=== PATIENT | female | born 1965 | race Caucasian/White ===

== ENCOUNTER → 2018-12-28 | Outpatient (CLI) | payer BC ==
--- NOTE | 2018-12-29 08:12 | CT ---
EXAMINATION TYPE: CT pelvis w con DATE OF EXAM: 12/28/2018 COMPARISON: CT abdomen pelvis 02/13/2016 HISTORY: Right lower quadrant/groin pain. CT DLP: 1025 mGycm Automated exposure control for dose reduction was used. CONTRAST: Performed with IV Contrast, patient injected with 100ml mL of Isovue 300. FINDINGS: Inferior portion of the abdomen within the [id number] is unremarkable. Loops of bowel distended with oral contrast are nondilated. Oral contrast extends to the colon. Urina ry bladder is unremarkable. Uterus and ovaries are not identified. Prior sigmoid bowel surgery appear s to be present. Descending colon is decompressed. There is an anterior abdominal wall hernia containing mesenteric fat. There is some small amount of l arge bowel extending into this region. No evidence of obstruction. Opening appears wide measuring 3.4 cm. No inguinal hernias are evident. No enlarged adenopathy is evident. Phleboliths are present. IMPRESSION: 1. ANTERIOR ABDOMINAL WALL HERNIA WHICH HAS A VERY SMALL EDGE OF COLON INVOLVED. NO EVIDENCE OF OBSTR UCTION IS WIDE OPENING. 2. POSTSURGICAL CHANGES WITHIN THE PELVIS. 3. NO SUSPICIOUS ETIOLOGY TO ACCOUNT FOR RIGHT LOWER QUADRANT GROIN PAIN.
== END | disposition home or self-care (01) ==
LOC: RADCTMAIN 15:55
PROVIDERS: ATTEND Family Medicine
DX: K43.9 Ventral hernia without obstruction or gangrene (principal)
CPT/HCPCS: 72193; Q9967

== ENCOUNTER → 2018-12-29 | Outpatient (CLI) | payer BC ==
[2018-12-29 09:48] LABS: Basophils % (A) 1 %; Eosinophils # (A) 0.1 k/uL (0-0.7); Eosinophils % (A) 3 %; HCT 39.7 % (34.0-46.0); Lymphocytes # (A) 1.6 k/uL (1.0-4.8); Lymphocytes % (A) 44 %; MCH 28.5 pg (25.0-35.0); MCHC 32.7 g/dL (31.0-37.0); MCV 87.1 fL (80.0-100.0); Mean Platelet Volume 8.3; Monocytes # (A) 0.2 k/uL (0-1.0); Monocytes % (A) 4 %; Neutrophils # (A) 1.6 k/uL (1.3-7.7); Neutrophils % (A) 46 %; Platelet Count 214 k/uL (150-450); RBC 4.56 m/uL (3.80-5.40); WBC 3.5 k/uL (3.8-10.6)
[2018-12-29 10:13] LABS: ALT 34 U/L (9-52); AST 25 U/L (14-36); Albumin 4.4 g/dL (3.5-5.0); Alkaline Phosphatase 90 U/L (38-126); Anion Gap 5 mmol/L; Blood Urea Nitrogen 9 mg/dL (7-17); Calcium 9.7 mg/dL (8.4-10.2); Carbon Dioxide 30 mmol/L (22-30); Chloride 105 mmol/L (98-107); Glucose 96 mg/dL (74-99); Potassium 4.8 mmol/L (3.5-5.1); Sodium 140 mmol/L (137-145); Total Bilirubin 0.6 mg/dL (0.2-1.3); Total Protein 7.5 g/dL (6.3-8.2)
--- NOTE | 2018-12-29 12:15 | MR ---
EXAMINATION TYPE: MR lumbar spine wo con DATE OF EXAM: 12/29/2018 COMPARISON: CT abdomen pelvis dated 02/13/2016 HISTORY: Back pain TECHNIQUE: Multiplanar, multisequence images of the lumbar spine were acquired. FINDINGS: The lumbar spine vertebral bodies maintain normal vertebral body heights and alignment. Mul tilevel disc desiccation is seen. Conus medullaris is unremarkable in signal and morphology. There is similar hepatic biliary ductal dilatation to the prior CT dated 02/13/2016 in this patient that is sta tus post cholecystectomy. L1-L2: Mild disc desiccation is seen without spinal canal stenosis nor neural foraminal narrowing. No focal disc herniation or disc bulge. L2-L3: Broad-based disc bulge is seen with facet arthropathy and mild ligamentum flavum buckling cont ributing to mild bilateral neural foraminal narrowing without spinal canal stenosis. L3-L4: There is a left eccentric disc bulge and small left foraminal annular tear creating mild left and minimal right neural foraminal narrowing. Facet arthropathy and ligamentum flavum buckling are al so seen. No significant spinal canal stenosis. L4-L5: There is a broad-based disc bulge and facet arthropathy with ligamentum flavum buckling. This disc bulges right eccentric creating moderate right neural foraminal narrowing and mild left neural f oraminal narrowing. No spinal canal stenosis. L5-S1: There is a small central disc herniation superimposed upon a broad-based disc bulge with mild facet arthropathy resulting in moderate right and mild left neural foraminal narrowing. No significan t spinal canal stenosis. IMPRESSION: 1. Small central disc herniation at L5-S1 in combination with a broad-based disc bulge creating moder ate right and mild left neural foraminal narrowing. 2. Mild multilevel degenerative disc disease of the lumbar spine creating multilevel neural foraminal narrowing as described above. No spinal canal stenosis.
== END ==
LOC: RADMRIMAIN 07:50
PROVIDERS: ATTEND Family Medicine
DX: M99.73 Connective tissue and disc stenosis of intervertebral foramina of lumbar region (principal); M51.17 Intervertebral disc disorders with radiculopathy, lumbosacral region; R10.31 Right lower quadrant pain
CPT/HCPCS: 36415; 72148; 80053; 85025

== ENCOUNTER 2019-04-25 18:56 | Emergency (ER) | payer BC ==
[2019-04-25 19:26] VITALS: BP 141/83; PULSE 69; RESP 18; TEMP 98.6
[2019-04-25] MEDS ORDERED: ACETAMINOPHEN TAB 325 MG TAB PO STA (19:59)
[2019-04-25] MEDS ORDERED: AMOXIC-POT CLAV 875-125MG 1 EACH TAB PO STA (19:59)
--- NOTE | 2019-04-25 20:13 | ED ---
General Adult HPI - General Chief complaint: Dental/Oral Stated complaint: Dental pain Time Seen by Provider: 04/25/19 19:32 Source: patient, RN notes reviewed, old records reviewed Mode of arrival: ambulatory Limitations: no limitations - History of Present Illness Initial comments: 54-year-old female patient presents to ED with approximately 3 days of dental pain. Patient points that she has pain on approximately tooth 22. Patient states that she has had dental problems in the past. Feels as if she has a dental infection. Denies any other complaints at this time. Denies chest pain comes with abdominal pain nausea vomiting diarrhea. Fevers and chills. Patient states that she is not . Systemic: Pt denies fatigue, fever/chills, rash. Pt denies weakness, night sweats, weight loss. Neuro: Pt denies headache, visual disturbances, syncope or pre-syncope. HEENT: Pt denies ocular discharge or irritation, otalgia, rhinorrhea, pharyngit is or notable lymphadenopathy. Cardiopulmonary: Pt denies chest pain, SOB, heart palpitations, dyspnea on exertion. Abdominal/GI: Pt denies abdominal pain, n/v/d. : Pt denies dysuria, burning w/ urination, frequency/urgency. Denies new onset urinary or bowel incontinence. MSK: Pt denies myalgia, loss of strength or function in extremities. Neuro: Pt denies new onset weakness, paresthesias. - Related Data Home Medications Medication Instructions Recorded Confirmed Lubiprostone [Amitiza] 24 mcg PO BID 06/18/16 08/27/16 Zipsor(Diclofenac Potassium) 25 mg PO Q6HR PRN 06/18/16 08/27/16 cloNIDine HCL [Catapres] 0.05 mg PO DAILY 06/18/16 08/27/16 Acetaminophen Tab [Tylenol Tab] 500 mg PO Q4-6H PRN 08/20/16 08/27/16 Glycolax 17 gm PO DAILY 08/20/16 08/27/16 Previous Rx's Medication Instructions Recorded ALPRAZolam [Xanax] 0.25 mg PO BID PRN #14 tab 08/31/16 HYDROcodone/APAP 5-325MG [M[place]ervey 1 - 2 tab PO Q6HR PRN #30 tab 08/31/16 5-325] Metoclopramide [Reglan] 10 mg PO Q8H PRN #15 tab 08/31/16 Amoxicillin/Potassium Clav 1 each PO Q12HR #20 tab 04/25/19 [Augmentin 875-125 Tablet] Allergies Allergy/AdvReac Type Severity Reaction Status Date / Time methylprednisolone Allergy Unknown Swelling Verified 04/25/19 19:26 tree nut [Nut] Allergy Unknown Swelling, Verified 04/25/19 19:26 Dyspnea Review of Systems ROS Statement: Those systems with pertinent positive or pertinent negative responses have been documented in the HPI. ROS Other: All systems not noted in ROS Statement are negative. Past Medical History Past Medical History: GERD/Reflux, Musculoskeletal Disorder Additional Past Medical History / Comment(s): Diverticulitis, IBS, Abdominal pain , states Buldging Discs in her back, Hx of nicked liver during gall bladder surgery with peritonitis. cyst on kidney History of Any Multi-Drug Resistant Organisms: None Reported Past Surgical History: Section, Cholecystectomy, Hysterectomy Additional Past Surgical History / Comment(s): neck surgery, laparoscopies, colonsocopy, oophorectomy(not sure which one) Past Anesthesia/Blood Transfusion Reactions: No Reported Reaction Past Psychological History: Anxiety Smoking Status: Never smoker Past Alcohol Use History: None Reported Past Drug Use History: None Reported - Past Family History Mother Family Medical History: No Reported History Father Additional Family Medical History / Comment(s): pt. states her father has been for 20 years, had a necrotic gallbladder ended up turning into pancreatitis and he secondary to that General Exam - General Exam Comments Initial Comments: Constitutional: NAD, AOX3, Pt has pleasant affect. HEENT: NC/AT, trachea midline, neck supple, no lymphadenopathy. Posterior pharynx non erythematous, without exudates. External ears appear normal, without discharge. Mucous membranes moist. Eyes PERRLA, EOM intact. There is no scleral icterus. No pallor noted. Mild erythema noted tooth 22. No drainable abscess. Dentition otherwise adequate. Cardiopulmonary: RRR, no murmurs, rubs or gallops, no JVD noted. Lungs CTAB in anterior and posterior scott. No peripheral edema. Abdominal exam: Abdomen soft and non-distended. Abdomen non-tender to palpation in all 4 quadrants. Bowel sounds active in LLQ. No hepatosplenomegaly. No ecchymosis Neuro: CN II-XII grossly intact. No nuchal rigidity. No raccon eyes, no bey sign, no hemotympanum. No cervical spinal tenderness. MSK: No posterior calf tenderness bilaterally, homans sign negative bilaterally. Posterior tibialis and radial pulse +2 bilaterally. Sensation intact in upper and lower extremities. Full active ROM in upper and lower extremities, 5/5 stregnth. Limitations: no limitations Course Vital Signs 04/25/19 19:24 Temperature 98.6 F Pulse Rate 69 Respiratory 18 Rate Blood Pressure 141/83 O2 Sat by Pulse 97 Oximetry Medical Decision Making - Medical Decision Making 54-year-old female patient presents to ED with approximately 3 days of dental pain. Patient points that she has pain on approximately tooth 22. Patient states that she has had dental problems in the past. Feels as if she has a dental infection. Denies any other complaints at this time. Denies chest pain comes with abdominal pain nausea vomiting diarrhea. Fevers and chills. Patient states that she is not . Patient also stable, afebrile. Physical exam displayed: Mild erythema noted tooth 22. No drainable abscess. Dentition otherwise adequate. Patient administered Tylenol and Augmentin ED. Patient discharged with Augmentin. Patient will follow up with dentist as soon as p ossible. Case discussed with Dr. Dean. Disposition Clinical Impression: Pain, dental, Dental infection Disposition: HOME SELF-CARE Condition: Stable Instructions (If sedation given, give patient instructions): Toothache (ED) Additional Instructions: Patient to adhere to previously discussed treatment plan and will take medication(s) as directed. Patient to follow up with PCP in 1-2 days. Patient to return to ED if symptoms do not improve. Take medication as prescribed. Follow-up with dentist as soon as possible. Return to ER if condition worsens. Prescriptions: Amoxicillin/Potassium Clav [Augmentin 875-125 Tablet] 1 each PO Q12HR #20 tab Is patient prescribed a controlled substance at d/c from ED?: No Referrals: Jackelyn Becerra MD [Primary Care Provider] - 1-2 days
== END 2019-04-25 20:39 | disposition home or self-care (01) ==
LOC: EC 18:56
DX: K04.7 Periapical abscess without sinus (principal); Z79.899 Other long term (current) drug therapy; Z88.8 Allergy status to other drugs, medicaments and biological substances; Z91.018 Allergy to other foods
CPT/HCPCS: 99283

== ENCOUNTER 2019-06-04 18:28 | Emergency (ER) | payer BC ==
[2019-06-04 19:14] VITALS: BP 129/79; TEMP 98.3
[2019-06-04] MEDS ORDERED: IBUPROFEN 600 MG TAB PO STA (19:28)
[2019-06-04] MEDS ORDERED: BENZONATATE 100 MG CAP PO STA (19:28)
[2019-06-04] MEDS ORDERED: AZITHROMYCIN 500 MG TAB PO STA (19:28)
[2019-06-04] MEDS ORDERED: ACETAMINOPHEN TAB 500 MG TAB PO STA (19:28)
[2019-06-04] MEDS ORDERED: IPRATROPIUM-ALBUTEROL 3 ML NEB INHALATION STA (19:28)
--- NOTE | 2019-06-04 19:30 | ED ---
URI HPI - General Chief Complaint: Upper Respiratory Infection Stated Complaint: cough/congestion/SOB Time Seen by Provider: 06/04/19 19:24 Source: patient, RN notes reviewed, old records reviewed Mode of arrival: ambulatory Limitations: no limitations - History of Present Illness Initial Comments: This is a 54-year-old female the ER for evaluation. Patient presents today for evaluation cough congestion shortness of breath feels like recurrent episodes of bronchitis. Patient's nonsmoker. No chest pain or travel history no sick contacts no known fevers she denies any sick contacts or travel history. Patient states she does appear to get this illness about once a year, symptoms are progressing 2 days MD Complaint: cough, nasal congestion -: days(s) (3) Severity: mild Severity scale (1-10): 3 Consistency: constant Improves With: nothing Worsens With: nothing Associated Symptoms: nasal congestion, sore throat, cough Treatments Prior to Arrival: none - Related Data Home Medications Medication Instructions Recorded Confirmed Cyclobenzaprine [Flexeril] 10 mg PO DAILY 06/04/19 06/04/19 Escitalopram Oxalate [Lexapro] 10 mg PO DAILY 06/04/19 06/04/19 Ibuprofen [Motrin] 800 mg PO BID 06/04/19 06/04/19 Omeprazole 40 mg PO DAILY 06/04/19 06/04/19 hydrOXYzine HCL [Atarax] 25 mg PO TID PRN 06/04/19 06/04/19 rOPINIRole HCL [Requip] 0.5 mg PO HS 06/04/19 06/04/19 Previous Rx's Medication Instructions Recorded Albuterol Sulfate [Proair Hfa] 1 - 2 puff INHALATION Q4H PRN #1 06/04/19 inhaler Azithromycin [Zithromax Z-pack] 0 mg PO DIRECTED #6 tab 06/04/19 Benzonatate [Tessalon Perles] 100 mg PO TID PRN #30 cap 06/04/19 Allergies Allergy/AdvReac Type Severity Reaction Status Date / Time methylprednisolone Allergy Unknown Swelling Verified 06/04/19 19:36 tree nut [Nut] Allergy Unknown Swelling, Verified 06/04/19 19:36 Dyspnea Review of Systems ROS Statement: Those systems with pertinent positive or pertinent negative responses have been documented in the HPI. ROS Other: All systems not noted in ROS Statement are negative. Past Medical History Past Medical History: GERD/Reflux, Musculoskeletal Disorder, Pneumonia Additional Past Medical History / Comment(s): Diverticulitis, IBS, Abdominal pain , states Buldging Discs in her back, Hx of nicked liver during gall bladder surgery with peritonitis. cyst on kidney History of Any Multi-Drug Resistant Organisms: None Reported Past Surgical History: Section, Cholecystectomy, Hysterectomy Additional Past Surgical History / Comment(s): neck surgery, laparoscopies, colonsocopy, oophorectomy(not sure which one) Past Anesthesia/Blood Transfusion Reactions: No Reported Reaction Past Psychological History: Anxiety Smoking Status: Never smoker Past Alcohol Use History: None Reported Past Drug Use History: None Reported - Past Family History Mother Family Medical History: No Reported History Father Additional Family Medical History / Comment(s): pt. states her father has been for 20 years, had a necrotic gallbladder ended up turning into pancreatitis and he secondary to that General Exam Limitations: no limitations General appearance: alert, in no apparent distress Head exam: Present: atraumatic, normocephalic, normal inspection Eye exam: Present: normal appearance, PERRL, EOMI. Absent: scleral icterus, conjunctival injection, periorbital swelling ENT exam: Present: normal exam, mucous membranes moist Neck exam: Present: normal inspection. Absent: tenderness, meningismus, lymphadenopathy Respiratory exam: Present: normal lung sounds bilaterally. Absent: respiratory distress, wheezes, rales, rhonchi, stridor Cardiovascular Exam: Present: normal rhythm, tachycardia, normal heart sounds. Absent: systolic murmur, diastolic murmur, rubs, gallop, clicks GI/Abdominal exam: Present: soft, normal bowel sounds. Absent: distended, tenderness, guarding, rebound, rigid Extremities exam: Present: normal inspection, full ROM, normal capillary refill. Absent: tenderness, pedal edema, joint swelling, calf tenderness Back exam: Present: normal inspection Neurological exam: Present: alert, oriented X3, CN II-XII intact Psychiatric exam: Present: normal affect, normal mood Skin exam: Present: warm, dry, intact, normal color. Absent: rash Course Vital Signs 06/04/19 06/04/19 06/04/19 19:12 19:49 20:09 Temperature 98.3 F Pulse Rate 103 H 82 Respiratory 22 20 18 Rate Blood Pressure 129/79 O2 Sat by Pulse 98 Oximetry 06/04/19 20:15 Temperature Pulse Rate 83 Respiratory 16 Rate Blood Pressure O2 Sat by Pulse Oximetry - Reevaluation(s) Reevaluation #1: Medical records reviewed Patient has significant improvement with breathing treatment Medical Decision Making - Medical Decision Making 54 female DEL with cough and congestion. X-rays negative for pneumonia no acute distress diagnosis of bronchitis. Patient be treated appropriately discharged home - Radiology Data Radiology results: report reviewed (Chest x-rays negative for acute disease), image reviewed Disposition Clinical Impression: Upper respiratory infection, Bronchitis Disposition: HOME SELF-CARE Condition: Good Instructions (If sedation given, give patient instructions): Upper Respiratory Infection in Children (ED), Acute Bronchitis (ED) Prescriptions: Albuterol Sulfate [Proair Hfa] 1 - 2 puff INHALATION Q4H PRN #1 inhaler PRN Reason: Shortness Of Breath Benzonatate [Tessalon Perles] 100 mg PO TID PRN #30 cap PRN Reason: Cough Azithromycin [Zithromax Z-pack] 0 mg PO DIRECTED #6 tab Is patient prescribed a controlled substance at d/c from ED?: No Referrals: Jackelyn Becerra MD [Primary Care Provider] - 1-2 days
--- NOTE | 2019-06-04 19:39 | XR ---
EXAMINATION TYPE: XR chest 2V DATE OF EXAM: 06/04/2019 COMPARISON: NONE HISTORY: History of recurrent pneumonia present with new shortness of breath and cough for 2 days. TECHNIQUE: Frontal and lateral views of the chest are obtained. FINDINGS: There is no focal air space opacity, pleural effusion, or pneumothorax seen. The cardiac silhouette size is within normal limits. Long segment anterior fusion plate cervical spine is noted. IMPRESSION: No suspicious acute infiltrate.
[2019-06-04 20:16] VITALS: PULSE 83; RESP 16
== END 2019-06-04 20:29 | disposition home or self-care (01) ==
LOC: EC 18:28
DX: J40 Bronchitis, not specified as acute or chronic (principal); J06.9 Acute upper respiratory infection, unspecified; K21.9 Gastro-esophageal reflux disease without esophagitis; F41.9 Anxiety disorder, unspecified; Z79.899 Other long term (current) drug therapy; Z88.8 Allergy status to other drugs, medicaments and biological substances; Z91.018 Allergy to other foods
CPT/HCPCS: 71046; 94640; 99285

== ENCOUNTER 2020-01-08 10:30 | Day surgery (SDC) | payer BC ==
[2020-01-04 10:33] VITALS: BMI 31.0
[~2020-01-08 10:30] MED LIST: LACTATED RINGERS 1,000 ML IV SCH; LIDOCAINE 1% 20 ML VIAL (10MG/ML) FOR IV START INTRADERMA PRN
[2020-01-08 10:52] VITALS: TEMP 98.7
[2020-01-08] MEDS ORDERED: LIDOCAINE 1% INJ 10MG/ML (20 ML MDV) ONE (12:31)
[2020-01-08] MEDS ORDERED: PROPOFOL 10 MG/ML 20 ML VIAL IV ONE (12:31)
[2020-01-08] MEDS ORDERED: IV FLUID CONTINUATION 1,000 ML IV ONE (12:56)
--- NOTE | 2020-01-08 12:59 | P.PCN ---
Date of Procedure: 01/08/20 Description of Procedure: BRIEF HISTORY: Patient is a 54-year-old female presenting for outpatient EGD for evaluation of symptoms of dysphagia. Patient reports a long history of gastroesophageal reflux disease treated with omeprazole therapy. She reports intermittent episodes of choking and coughing which can occur even with air or swallowing liquids. PROCEDURE PERFORMED: Esophagogastroduodenoscopy with biopsy. PREOPERATIVE DIAGNOSIS: Dysphagia, GERD. ESTIMATED BLOOD LOSS: Minimal. IV sedation per anesthesia. PROCEDURE: After informed consent was obtained, the patient was brought into the endoscopy unit. IV sedation was administered by Anesthesia under continuous monitoring. Initially the Olympus GIF-190 video endoscope was inserted into the mouth. Esophagus intubated without any difficulty. It was gradually advanced into the stomach and duodenum and carefully examined. The bulb and the second part of the duodenum appeared normal, with biopsies taken. The scope at this time was withdrawn to the stomach, adequately insufflated with air, and upon careful exa mination, mucosa of the antrum, body, cardia and the fundus appeared normal, with some mild scattered erythema in the antrum and body suggestive of mild gastritis with biopsies taken. The scope was then withdrawn into the esophagus. The GE junction was located at 36 cm from the incisors, with biopsies taken. 2 cm hiatal hernia noted. A nonobstructing widely patent distal esophageal Schatzki's ring was noted just above the GE junction. The esophagus appeared normal, with an esophageal biopsies taken. There were no erosions or ulcerations seen and the patient tolerated the procedure well. IMPRESSION: 1. Mild gastritis antrum body, biopsied. 2. Biopsies of the duodenum, GE junction, midesophagus. 3. Nonobstructing distal esophageal Schatzki's ring. RECOMMENDATIONS: The findings of this examination were discussed with the patient in her family. Okay to resume diet. Okay to resume medications. Can attempt a trial of twice- daily omeprazole to see if symptoms improved. Otherwise, await pathology from biopsies.
[2020-01-08 13:18] VITALS: BP 118/71; PULSE 81; RESP 18
== END 2020-01-08 13:30 | disposition home or self-care (01) ==
LOC: ORWHC2ENDO 10:30
PROVIDERS: ATTEND Internal Medicine
DX: K22.2 Esophageal obstruction (principal); K29.50 Unspecified chronic gastritis without bleeding; K44.9 Diaphragmatic hernia without obstruction or gangrene; K21.0 Gastro-esophageal reflux disease with esophagitis; K58.9 Irritable bowel syndrome, unspecified; F41.9 Anxiety disorder, unspecified; F32.9 Major depressive disorder, single episode, unspecified; Z88.8 Allergy status to other drugs, medicaments and biological substances; Z91.09 Other allergy status, other than to drugs and biological substances; Z79.899 Other long term (current) drug therapy; Z90.49 Acquired absence of other specified parts of digestive tract; Z90.710 Acquired absence of both cervix and uterus; Z90.79 Acquired absence of other genital organ(s)
CPT/HCPCS: 88305; 43239; J2001; J2704

== ENCOUNTER → 2020-05-06 | Outpatient (CLI) | payer OTHER ==
--- NOTE | 2020-05-06 10:35 | CT ---
EXAMINATION TYPE: CT abdomen pelvis w con DATE OF EXAM: 05/06/2020 COMPARISON: December 28, 2018 HISTORY: Unspecified abdominal hernia without obstruction CT DLP: 1446 mGycm CONTRAST: CT scan of the abdomen and pelvis is performed with Oral Contrast and with IV Contrast, patient injec polo with 100 mL of Isovue 300. FINDINGS: LUNG BASES-: No visible nodule. No infiltrate. LIVER/GB: The gallbladder surgically absent. Simple cyst at the dome of the liver measures 5.8 cm. No space occupying solid hepatic lesion. Biliary tree is of normal caliber. PANCREAS: No inflammation. No distinct mass. SPLEEN: No splenic enlargement. No lesion seen. ADRENALS: No nodule. No thickening. KIDNEYS/BLADDER: No hydronephrosis. No nephrolithiasis. There is a small solid lesion upper pole ri ght kidney measuring 2 cm felt to reflect a small renal cell carcinoma. Urology consult is recommende d. No additional solid renal lesions identified. Urinary bladder grossly unremarkable. BOWEL: Normal appendix. Normal bowel caliber. No inflammation. GENITAL ORGANS: No gross abnormality. LYMPH NODES: No greater than 1cm abdominal or pelvic lymph nodes are appreciated. AORTA: No significant abnormality. OSSEOUS STRUCTURES: No significant abnormality is seen. OTHER: Fat-containing umbilical hernia measuring 2.9 x 3.0 cm. IMPRESSION: 1. small solid lesion upper pole right kidney measuring 2 cm felt to reflect a small renal cell carci noma. Urology consult is recommended. 2. Fat-containing umbilical hernia is noted.
== END | disposition home or self-care (01) ==
LOC: RADCTMAIN 08:10
PROVIDERS: ATTEND Family Medicine
DX: N28.9 Disorder of kidney and ureter, unspecified (principal); K42.9 Umbilical hernia without obstruction or gangrene
CPT/HCPCS: 74177; Q9967

== ENCOUNTER → 2020-06-27 | Outpatient (CLI) | payer OTHER ==
--- NOTE | 2020-06-27 11:58 | XR ---
EXAMINATION TYPE: XR chest 2V DATE OF EXAM: 06/27/2020 COMPARISON: 06/04/2019 TECHNIQUE: PA and lateral views submitted. HISTORY: Presurgical FINDINGS: The lungs are clear and there is no pneumothorax, pleural effusion, or focal pneumonia. Postoperati ve change overlying the cervical spine. The heart size is normal. No overt failure. Hypertrophic and degenerative change of the spine. IMPRESSION: 1. No acute process.
[2020-06-27 12:23] LABS: Basophils % (A) 0 %; Eosinophils # (A) 0.1 k/uL (0-0.7); Eosinophils % (A) 2 %; HCT 38.4 % (34.0-46.0); HGB 12.5 gm/dL (11.4-16.0); Lymphocytes # (A) 1.6 k/uL (1.0-4.8); Lymphocytes % (A) 32 %; MCHC 32.6 g/dL (31.0-37.0); Mean Platelet Volume 8.2; Monocytes # (A) 0.2 k/uL (0-1.0); Monocytes % (A) 5 %; Neutrophils # (A) 2.9 k/uL (1.3-7.7); Neutrophils % (A) 59 %; Platelet Count 367 k/uL (150-450); RBC 4.47 m/uL (3.80-5.40); RDW 13.4 % (11.5-15.5); WBC 4.9 k/uL (3.8-10.6)
[2020-06-27 12:55] LABS: African American GFR (CKD) >90 (>60 ml/min/1.73 sqM); Anion Gap 8 mmol/L; Blood Urea Nitrogen 9 mg/dL (7-17); Calcium 9.6 mg/dL (8.4-10.2); Carbon Dioxide 23 mmol/L (22-30); Chloride 107 mmol/L (98-107); Glucose 105 mg/dL (74-99); Non-African American GFR(CKD) >90 (>60 ml/min/1.73 sqM); Potassium 4.2 mmol/L (3.5-5.1); Sodium 138 mmol/L (137-145)
== END | disposition home or self-care (01) ==
LOC: LABPAT 10:29
PROVIDERS: ATTEND Urology
DX: Z01.818 Encounter for other preprocedural examination (principal); D41.01 Neoplasm of uncertain behavior of right kidney; R58 Hemorrhage, not elsewhere classified; R05 Cough
CPT/HCPCS: 36415; 71046; 80048; 85025

== ENCOUNTER 2020-07-04 06:35 | Inpatient (IN) | payer OTHER ==
[2020-06-30 12:16] VITALS: BMI 31.0
--- NOTE | 2020-07-01 08:23 | P.HPIHPCON ---
History of Present Illness H&P Date: 07/04/20 Chief Complaint: right sided renal mass Ms Canales is a 55 yo female with hx of 2cm upper pole right sided renal mass. We discussed with her the option of radical nephrectomy, partial nephrectomy, cryoablation and observations. Discussed with her the risk and benefit of each approach. She agreed to proceed with robotic assisted partial nephrectomy. Of note she has history of multiple abdominal surgeries and hx of bile leak following cholecystectomy. Given her previous surgical history the option of reteroperitoneal approach was discussed with her. I discussed with her potential of conversion to open, potential of doing a radical nephrectomy. I also discussed potential of converting to transperitoneal approach. Discussed risk of bowel injury and injury to nearby organ with transperitoneal conversion. Discussed risk of bleeding, infection, delayed complication and risk from anesthesia Consent for Procedure: I have explained the operation/procedure to the patient, including the risks, benefits, side effects, alternative therapies (including not receiving the proposed treatment or service), the likelihood of the patient achieving his/her goals, and potential recuperation problems for the procedure/sedation/analgesia, as well as any blood products, if indicated. I also explained to the patient the risks, benefits and side effects of the alternatives, as well as the risks related to not receiving the proposed procedure, care, treatment, or services. - Constitutional Constitutional: Denies chills, Denies fever - Cardiovascular Cardiovascular: Denies chest pain, Denies shortness of breath - Respiratory Respiratory: Denies cough, Denies 7 - Gastrointestinal Gastrointestinal: Denies abdominal pain, Denies diarrhea, Denies nausea, Denies vomiting Past Medical History Past Medical History: GERD/Reflux, Musculoskeletal Disorder, Pneumonia Additional Past Medical History / Comment(s): Diverticulitis, IBS, Hx of nicked liver during gall bladder surgery with peritonitis, cyst on liver, pneumonia (2019), umbilical hernia currently, restless leg, lower back pain, possible cancer in kidney History of Any Multi-Drug Resistant Organisms: None Reported Past Surgical History: Back Surgery, Bowel Resection, Section, Cholecystectomy, Hysterectomy Additional Past Surgical History / Comment(s): 2 herniated cervical discs with cadaver and metal plate., laparoscopies, colonsocopy, oophorectomy, partial bowel resection (states bowel collapsed and adherred to bladder (2016) Past Anesthesia/Blood Transfusion Reactions: No Reported Reaction Smoking Status: Never smoker - Past Family History Mother Family Medical History: No Reported History Father Additional Family Medical History / Comment(s): pt. states her father has been for 20 years, had a necrotic gallbladder ended up turning into pancreatitis and he secondary to that Medications and Allergies Home Medications Medication Instructions Recorded Confirmed Type Cyclobenzaprine [Flexeril] 10 mg PO DAILY PRN 06/04/19 06/30/20 History Ibuprofen [Motrin] 800 mg PO BID PRN 06/04/19 06/30/20 History Omeprazole 40 mg PO BID 06/04/19 06/30/20 History rOPINIRole HCL [Requip] 1 mg PO HS 06/04/19 06/30/20 History Melatonin 10 mg PO HS 01/04/20 06/30/20 History Venlafaxine HCl [Effexor XR] 150 mg PO DAILY 01/04/20 06/30/20 History busPIRone HCL 10 mg PO BID 06/30/20 06/30/20 History hydrOXYzine HCL [Atarax] 25 mg PO TID PRN 06/30/20 06/30/20 History Allergies Allergy/AdvReac Type Severity Reaction Status Date / Time methylprednisolone Allergy Unknown Swelling Verified 06/30/20 10:56 tree nut [Nut] Allergy Unknown Swelling, Verified 06/30/20 10:56 Dyspnea Surgical - Exam - General well developed, well nourished, no distress, no pain - Eyes PERRL, normal ocular movement - Respiratory normal expansion, normal respiratory effort - Abdomen Abdomen: soft, non tender Assessment and Plan Assessment: 55 yo female with 2 cm right sided renal mass -OR for right sided partial nephrectomy( reteroperitoneal approach)
[~2020-07-04 06:35] MED LIST changes: -LACTATED RINGERS 1,000 ML IV SCH; -LIDOCAINE 1% 20 ML VIAL (10MG/ML) FOR IV START INTRADERMA PRN; +MIDAZOLAM 2 MG/2 ML VIAL IV PRN
[2020-07-04] MEDS: LACTATED RINGERS 1,000 ML IV SCH ×2 (06:52→07:13)
[2020-07-04] MEDS: LIDOCAINE 1% (10MG/ML) FOR IV START INTRADERMA ONE ×2 (06:52→07:13)
[2020-07-04] MEDS ORDERED: ONDANSETRON 4 MG/2 ML VIAL ONE ×2 (07:07→07:43)
[2020-07-04] MEDS: SCOPOLAMINE 1.5MG/72HR PATCH TRANSDERM ONE ×2 (07:13→13:05)
[2020-07-04] MEDS: ONDANSETRON 4 MG/2 ML VIAL IVP ONE ×2 (07:13→13:05)
[2020-07-04 07:16] LABS: INR 0.9 (<1.2); Prothrombin Time 9.8 sec (9.0-12.0)
[2020-07-04] MEDS ORDERED: PROPOFOL 10 MG/ML 20 ML VIAL IV ONE (07:43)
[2020-07-04] MEDS ORDERED: ROCURONIUM BROMIDE 10 MG/ML 5 ML VIAL IV ONE (07:43)
[2020-07-04] MEDS ORDERED: MANNITOL 25% 12.5 GM/50 ML VIAL ONE (07:43)
[2020-07-04] MEDS ORDERED: SUCCINYLCHOLINE CHLORIDE 100 MG/5 ML SYR IV ONE (07:43)
[2020-07-04] MEDS ORDERED: LIDOCAINE 1% INJ 10MG/ML (20 ML MDV) ONE (07:43)
[2020-07-04] MEDS ORDERED: GLYCOPYRROLATE 0.2 MG/ML 2 ML VIAL ONE (07:43)
[2020-07-04] MEDS ORDERED: NEOSTIGMINE 1 MG/ML 10 ML VIAL ONE (07:43)
[2020-07-04] MEDS ORDERED: MIDAZOLAM 2 MG/2 ML VIAL ONE (07:43)
[2020-07-04] MEDS ORDERED: fentaNYL (PF) 50 MCG/ML 2 ML AMP ONE (07:43)
[2020-07-04] MEDS ORDERED: BUPIVACAINE (PF) 0.5% 30 ML VIAL SQ ONE ×2 (09:07)
[2020-07-04] MEDS ORDERED: LACTATED RINGERS 1,000 ML IV ONE (09:40)
[2020-07-04] MEDS ORDERED: IBUPROFEN 800 MG TAB PO PRN (10:39)
[2020-07-04] MEDS ORDERED: CYCLOBENZAPRINE 10 MG TAB PO PRN (10:39)
[2020-07-04] MEDS ORDERED: hydrOXYzine HCL 25 MG TAB PO PRN (10:39)
--- NOTE | 2020-07-04 10:52 | P.OP ---
Date of Procedure: 07/04/20 Preoperative Diagnosis: Right renal mass Postoperative Diagnosis: Right renal mass Procedure(s) Performed: Robotic right retroperitoneal partial nephrectomy Implants: None Anesthesia: DAVE Surgeon: Milton Martinez Retail Wireless Sales Consultant #1: Brandt Khan Estimated Blood Loss (ml): 50 IV fluids (ml): 300 Urine output (ml): 100 Pathology: other (Right renal mass) Condition: stable Disposition: PACU Indications for Procedure: Roxanne was found to have a 2 cm right upper pole anterior renal mass. This is suspicious for malignancy. She was recommended to undergo a robotic retroperitoneal partial nephrectomy given the history of multiple intra- abdominal surgeries Operative Findings: Right partially exophytic anterior 2 cm renal mass. The mass visually looked l anastasia a malignant tumor. Single renal artery and single renal vein Description of Procedure: Roxanne elected to undergo a robotic right retroperitoneal partial nephrectomy. All risks and complications were explained to her including bleeding, urine leak, need for nephrectomy, vascular, bowel injury. She signed a written informed consent. She was taken to the OR and administered general anesthesia. She was placed in right lateral position. She was well taped to the operating table and the operating table was flexed to open up the flank area. Parts were prepped and dr aped. A 1 cm incision was made at the midpoint of the iliac crest and slightly above it. This was deepened down to the fascia. Using a hemostat the muscles of the flank was split to enter the retroperitoneum. A finger was used to enlarge this incision and a space was created for the balloon dissector. The balloon dissector was then introduced through the opening into the retroperitoneum and a retroperitoneal space was developed. The balloon dissector was removed and a 12 mm balloon cinch port was placed. The 8 mm robotic camera was then placed through the port and the retroperitoneal space was visualized. Using a Kitner dissector the space was dissected out to place additional ports. 3 other robotic 8 mm ports were placed in a line in the subcostal margin. The robot was docked. The psoas muscle was dissected and the plane was mobilized. Using the fourth arm the kidney was headed towards the anterior abdominal wall while the perinephric fascia and fat was dissected. Attention was then directed to the renal hilum where a single renal artery was dissected and circumferentially mobilized. Care was taken to avoid injury to the renal vein or the ureter. Attention was then directed to the upper pole and the fat was reflected off the upper pole of the kidney. Our dissection was continued to the anterior surface of the kidney and the tumor was identified Intraoperative Ultrasound was then used. The renal mass was clearly visualized by ultrasound and marked out. No additional tumors were seen on evaluation of the kidney with the ultrasound. Mannitol was administered 12.5 g and the renal artery was controlled with 2 bulldog clamps. Using a monopolar scissor and bipolar forceps the renal tumor was then completely excised with minimal bleeding. The renal mass was placed in an Endo Catch bag towards the lower end of the space. The monopolar scissors was replaced with a needle restaurant delivery driver and the renorrhaphy was performed in 2 layers. A deep layer of 3-0 v loc was used to approximate the deep layer. This was held in place with a Hemolok clip on the outside capsule of the kidney. The outer renorrhaphy they were both performed using 3 separate sutures of 2-0 v loc that were held in place with Hem-o-kiana clips. At the end of the Renorrhaphy there was good approximation of the 2 edges of the defect. The bulldog clamps were then removed and the defect was observed for bleeding. There was no bleeding from the renorrhaphy area. Hemostasis was adjunctive with Tisseel and Surgicel. Hemostasis was reconfirmed and a drain was placed through the posterior 8 mm port. The robotic instruments were removed and the robot was de-docked. The bed was deflexed and the incisions were closed in layers. The 12 mm port was closed with a 0 Vicryl interrupted suture and skin was closed with 4-0 Monocryl. The patient tolerated the procedure well and was taken to recovery in stable condition
[2020-07-04] MEDS: HYDROmorphone 0.5 MG/0.5 ML SYRINGE IVP PRN ×4 (11:04→12:50)
[2020-07-04] MEDS: KETOROLAC 15 MG/ML 1 ML VIAL IVP SCH ×3 (13:40→23:34)
[2020-07-04 14:16] LABS: Basophils % (A) 0 %; Eosinophils % (A) 0 %; HCT 37.4 % (34.0-46.0); HGB 12.2 gm/dL (11.4-16.0); Lymphocytes # (A) 0.6 k/uL (1.0-4.8); Lymphocytes % (A) 5 %; MCH 28.3 pg (25.0-35.0); MCHC 32.7 g/dL (31.0-37.0); MCV 86.5 fL (80.0-100.0); Mean Platelet Volume 8.4; Monocytes # (A) 0.5 k/uL (0-1.0); Monocytes % (A) 4 %; Neutrophils # (A) 11.6 k/uL (1.3-7.7); Neutrophils % (A) 91 %; Platelet Count 293 k/uL (150-450); RBC 4.32 m/uL (3.80-5.40); RDW 13.5 % (11.5-15.5); WBC 12.8 k/uL (3.8-10.6)
[2020-07-04 14:59] LABS: ALT 72 U/L (4-34); AST 135 U/L (14-36); African American GFR (CKD) >90 (>60 ml/min/1.73 sqM); Albumin 4.2 g/dL (3.5-5.0); Alkaline Phosphatase 116 U/L (38-126); Anion Gap 6 mmol/L; Blood Urea Nitrogen 16 mg/dL (7-17); Calcium 9.1 mg/dL (8.4-10.2); Carbon Dioxide 25 mmol/L (22-30); Chloride 106 mmol/L (98-107); Glucose 124 mg/dL (74-99); Non-African American GFR(CKD) >90 (>60 ml/min/1.73 sqM); Potassium 4.2 mmol/L (3.5-5.1); Sodium 137 mmol/L (137-145); Total Bilirubin 0.6 mg/dL (0.2-1.3)
[2020-07-04] MEDS: HEPARIN SODIUM,PORCINE 5,000 UNIT/ML 1 ML VIAL SQ SCH ×2 (15:08→23:34)
[2020-07-04 15:46] LABS: Glucose,Whole Blood 151 mg/dL (75-99)
[2020-07-04] MEDS: ONDANSETRON 4 MG/2 ML VIAL IVP PRN (15:46)
[2020-07-04] MEDS: PANTOPRAZOLE 40 MG TABLET PO SCH (16:23)
[2020-07-04] MEDS: DEXTROSE 5%-0.45% NACL 1,000 ML IV SCH ×2 (17:22→20:29)
[2020-07-04] MEDS: HYDROmorphone 1 MG/ML 1 ML SYRINGE IVP PRN ×2 (17:22→20:29)
[2020-07-04] MEDS: MELATONIN 5 MG TABLET PO SCH (20:28)
[2020-07-04] MEDS: busPIRone HCl 10 MG TAB PO SCH (20:29)
[2020-07-05] MEDS: DEXTROSE 5%-0.45% NACL 1,000 ML IV SCH ×3 (03:50→21:00)
[2020-07-05] MEDS: ONDANSETRON 4 MG/2 ML VIAL IVP PRN ×2 (03:51→13:51)
[2020-07-05] MEDS: KETOROLAC 15 MG/ML 1 ML VIAL IVP SCH ×4 (05:30→23:02)
[2020-07-05] MEDS: HYDROmorphone 1 MG/ML 1 ML SYRINGE IVP PRN ×3 (07:19→19:24)
[2020-07-05] MEDS: busPIRone HCl 10 MG TAB PO SCH ×2 (07:20→20:51)
[2020-07-05] MEDS: VENLAFAXINE HCL ER 150 MG CAP PO SCH (07:20)
[2020-07-05] MEDS: PANTOPRAZOLE 40 MG TABLET PO SCH ×2 (07:20→17:12)
[2020-07-05] MEDS: HEPARIN SODIUM,PORCINE 5,000 UNIT/ML 1 ML VIAL SQ SCH ×3 (07:20→23:03)
[2020-07-05] MEDS: METOCLOPRAMIDE 5 MG/ML 2 ML VIAL IVP PRN ×2 (08:07→19:25)
[2020-07-05 08:24] LABS: ALT 63 U/L (4-34); AST 74 U/L (14-36); African American GFR (CKD) >90 (>60 ml/min/1.73 sqM); Albumin 3.6 g/dL (3.5-5.0); Alkaline Phosphatase 111 U/L (38-126); Anion Gap 6 mmol/L; Blood Urea Nitrogen 10 mg/dL (7-17); Calcium 8.6 mg/dL (8.4-10.2); Carbon Dioxide 24 mmol/L (22-30); Chloride 106 mmol/L (98-107); Glucose 150 mg/dL (74-99); Non-African American GFR(CKD) >90 (>60 ml/min/1.73 sqM); Potassium 3.8 mmol/L (3.5-5.1); Sodium 136 mmol/L (137-145); Total Bilirubin 0.4 mg/dL (0.2-1.3); Total Protein 6.2 g/dL (6.3-8.2)
--- NOTE | 2020-07-05 10:26 | P.PN ---
Subjective Progress Note Date: 07/05/20 Principal diagnosis: Right renal mass The patient reports. Incisional discomfort. She is anxious for her Waldron catheter to be removed so she can begin ambulating. The catheter is draining clear yellow urine. She tolerated clear liquid diet for breakfast. Objective - Vital Signs Vital signs: Vital Signs Temp 98.8 F 07/05/20 07:00 Pulse 83 07/05/20 07:00 Resp 18 07/05/20 07:00 BP 136/77 07/05/20 07:00 Pulse Ox 92 L 07/05/20 07:00 Intake & Output 07/04/20 07/05/20 07/05/20 18:59 06:59 18:59 Intake Total 2200 375 Output Total 825 1015 Balance 1375 -640 Weight 93 kg Intake: IV 2200 Intake, IV Titration 375 Amount Dextrose 5%-0.45% NaCl 1, 375 000 ml @ 125 mls/hr IV . Q8H [facility] Rx#:[id number] Output: Drainage 25 40 Right Lower Back 25 40 Urine 700 975 Estimated Blood Loss 100 Other: Voiding Method Indwelling Catheter Indwelling Catheter Indwelling Catheter # Voids 1 - Constitutional General appearance: Present: cooperative, no acute distress - Gastrointestinal Gastrointestinal Comment(s): Soft, non-distended. Incisions clean, dry, and intact. - Psychiatric Psychiatric: Present: A&O x's 3 - Labs CBC & Chem 7: 07/04/20 13:46 07/05/20 06:24 Labs: Abnormal Lab Results - Last 24 Hours (Table) 07/04/20 07/04/20 07/04/20 Range/Units 13:46 13:46 15:45 WBC 12.8 H (3.8-10.6) k/uL Neutrophils # 11.6 H (1.3-7.7) k/uL Lymphocytes # 0.6 L (1.0-4.8) k/uL Sodium (137-145) mmol/L Glucose 124 H (74-99) mg/dL POC Glucose (mg/dL) 151 H (75-99) mg/dL AST 135 H (14-36) U/L ALT 72 H (4-34) U/L Total Protein (6.3-8.2) g/dL 07/05/20 Range/Units 06:24 WBC (3.8-10.6) k/uL Neutrophils # (1.3-7.7) k/uL Lymphocytes # (1.0-4.8) k/uL Sodium 136 L (137-145) mmol/L Glucose 150 H (74-99) mg/dL POC Glucose (mg/dL) (75-99) mg/dL AST 74 H (14-36) U/L ALT 63 H (4-34) U/L Total Protein 6.2 L (6.3-8.2) g/dL Assessment and Plan (1) Right renal mass Current Visit: Yes Status: Acute Code(s): N28.89 - OTHER SPECIFIED DISORDERS OF KIDNEY AND URETER SNOMED Code(s): 420962509 Plan: Ambulate. Remove Waldron catheter. Advance diet as tolerated. Anticipate discharge home tomorrow.
[2020-07-05] MEDS: MELATONIN 5 MG TABLET PO SCH (20:51)
[2020-07-06] MEDS: HYDROmorphone 1 MG/ML 1 ML SYRINGE IVP PRN (00:27)
[2020-07-06] MEDS: KETOROLAC 15 MG/ML 1 ML VIAL IVP SCH (04:55)
[2020-07-06] MEDS: ONDANSETRON 4 MG/2 ML VIAL IVP PRN (04:55)
[2020-07-06] MEDS: DEXTROSE 5%-0.45% NACL 1,000 ML IV SCH (05:27)
--- NOTE | 2020-07-06 07:23 | P.DS ---
Providers Date of admission: 07/04/20 06:35 Attending physician: Milton Martinez Primary care physician: [facility] Course: The patient is 55. 48 hours ago she is admitted for a right partial nephrectomy by and gail. She did well with this. Her vital signs are stable. Her urine output is been good. His pain is been under control. The BOBBY was removed today. She'll be discharged home later today. She'll follow-up with Dr. Khan in the office. She'll be given a prescription of [place] and Zofran upon discharge. Postoperative instructions been given. Pathology report is pending upon discharge. Her condition is good. Patient Condition at Discharge: Good Plan - Discharge Summary Discharge Rx Participant: Yes New Discharge Prescriptions: New HYDROcodone/APAP 5-325MG [[place] 5-325] 1 tab PO Q4HR PRN #14 tab PRN Reason: Pain Ondansetron HCl [Zofran] 4 mg PO Q8H PRN #14 tab PRN Reason: Nausea And Vomiting No Action rOPINIRole HCL [Requip] 1 mg PO HS Cyclobenzaprine [Flexeril] 10 mg PO DAILY PRN PRN Reason: Muscle Pain Omeprazole 40 mg PO BID Ibuprofen [Motrin] 800 mg PO BID PRN PRN Reason: Pain Venlafaxine HCl [Effexor XR] 150 mg PO DAILY Melatonin 10 mg PO HS hydrOXYzine HCL [Atarax] 25 mg PO TID PRN PRN Reason: Anxiety busPIRone HCL 10 mg PO BID Discharge Medication List Cyclobenzaprine [Flexeril] 10 mg PO DAILY PRN 06/04/19 [History] Ibuprofen [Motrin] 800 mg PO BID PRN 06/04/19 [History] Omeprazole 40 mg PO BID 06/04/19 [History] rOPINIRole HCL [Requip] 1 mg PO HS 06/04/19 [History] Melatonin 10 mg PO HS 01/04/20 [History] Venlafaxine HCl [Effexor XR] 150 mg PO DAILY 01/04/20 [History] busPIRone HCL 10 mg PO BID 06/30/20 [History] hydrOXYzine HCL [Atarax] 25 mg PO TID PRN 06/30/20 [History] HYDROcodone/APAP 5-325MG [[place] 5-325] 1 tab PO Q4HR PRN #14 tab 07/06/20 [Rx] Ondansetron HCl [Zofran] 4 mg PO Q8H PRN #14 tab 07/06/20 [Rx] Follow up Appointment(s)/Referral(s): Brandt Khan MD [STAFF PHYSICIAN] - 1 Week Patient Instructions/Handouts: *Surgery [facility] - Scopalamine Patch Instructions Discharge Disposition: HOME SELF-CARE
[2020-07-06 07:24] VITALS: BP 146/79; PULSE 97; RESP 16; TEMP 98.4
[2020-07-06] MEDS: HYDROcodone/APAP 5-325MG 1 EACH TAB PO PRN ×2 (07:39→11:35)
[2020-07-06] MEDS: VENLAFAXINE HCL ER 150 MG CAP PO SCH (07:39)
[2020-07-06] MEDS: PANTOPRAZOLE 40 MG TABLET PO SCH (07:39)
[2020-07-06] MEDS: HEPARIN SODIUM,PORCINE 5,000 UNIT/ML 1 ML VIAL SQ SCH (07:40)
[2020-07-06] MEDS: busPIRone HCl 10 MG TAB PO SCH (07:40)
[2020-07-06] MEDS: METOCLOPRAMIDE 5 MG/ML 2 ML VIAL IVP PRN (07:41)
--- NOTE | 2020-07-09 04:45 | CDI ---
Documentation Clarification Form Date: 07/09/2020 From: Jhansirani. Pfeiffer Phone: If you have a question about this query, please contact Arielle Barfield Cattle Rancher at [phone] between 8am and 5pm. Admit Date: 07/04/2020 Discharge Date: 07/06/2020 Patient Name: Roxanne Canales Visit Number: [id number] ATTENTION: The Clinical Documentation Specialists (CDI) and [facility] Coding Staff appreciate your assistance in clarifying documentation. Please respond to the clarification below the line at the bottom and electronically sign. The CDI & [facility] Coding staff will review the response and follow-up if needed. Please note: Queries are made part of the Legal Health Record. If you have any questions, please contact the author of this message via ITS. 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 Documentation states: Right renal mass Patient history/risk factors: Right renal mass Treatment: Robotic assisted laparoscopic partial nephrectomy. In your professional opinion, do you agree with the pathology report specifying Right renal mass as renal cell carcinoma? Yes. (Last Revision: August 2017) MTDD
== END 2020-07-06 14:14 | disposition home or self-care (01) | DRG 658 ==
LOC: 2ORMAIN 06:35 → 4SSUR 12:38
PROVIDERS: ADMIT Urology; ATTEND Urology
PROC: 8E0W4CZ Robotic Assisted Procedure of Trunk Region, Percutaneous Endoscopic Approach (ICD-10-PCS; principal; 2020-07-04 07:30)
PROC: 0TB04ZZ Excision of Right Kidney, Percutaneous Endoscopic Approach (ICD-10-PCS; principal; 2020-07-04 07:30)
DX: C64.1 Malignant neoplasm of right kidney, except renal pelvis (principal); K21.9 Gastro-esophageal reflux disease without esophagitis; K58.9 Irritable bowel syndrome, unspecified; G25.81 Restless legs syndrome; M54.5 Low back pain
CPT/HCPCS: 80053; 85025; 85610; 86850; 86900; 86901; 88305; 88307

== ENCOUNTER → 2020-09-23 | Outpatient (CLI) | payer OTHER ==
--- NOTE | 2020-09-23 13:56 | P.STRESS ---
- Stress Test Note Stress Test Results/Findings: Exam Performed: stress echo exercise Exam Date: 09/23/20 Reason for Exam: Chest Pressure and Shortness of Breath Height: 5 ft 9 in Weight: 95.254 kg Protocol: Kan Stage: 2 Duration of Exercise: 5:39 Resting Heart Rate: 90 Resting Blood Pressure: 115/85 Maximum Achieved Heart Rate: 152 Maximum Achieved Blood Pressure: 176/78 85% PMHR: 139 100% PMHR: 164 METS: 7.1 Technologist Comment: Stress Test Results/Findings: baseline heart rate 90 beats a minute, Baseline blood pressure 115/85 mmHg Baseline 12-lead ECG showed sinus rhythm normal ST segments Patient exercised on a Kan protocol for only 5-1/2 minutes achieving a peak heart rate of 152 beats a minute Normal blood pressure response to exercise No ECG evidence for ischemia Baseline 2-D echo showed normal LV systolic function without segmental wall motion abnormalities At peak exercise there was excellent augmentation of overall LV contractility, without development LV wall motion abnormalities @Recovery reasonable LV systolic function remain normal Impression low Average exercise capacity No ECG or echocardiographic evidence for ischemia
== END | disposition home or self-care (01) ==
LOC: RADNMMAIN 08:54
PROVIDERS: ATTEND Family Medicine
DX: R06.02 Shortness of breath (principal)
CPT/HCPCS: 93351

== ENCOUNTER → 2020-12-15 | Outpatient (CLI) | payer OTHER ==
[2020-12-15 17:10] LABS: HCT 37.5 % (34.0-46.0); HGB 12.9 gm/dL (11.4-16.0); MCH 28.5 pg (25.0-35.0); MCHC 34.5 g/dL (31.0-37.0); MCV 82.6 fL (80.0-100.0); Mean Platelet Volume 8.8; Platelet Count 272 k/uL (150-450); RBC 4.54 m/uL (3.80-5.40); RDW 14.3 % (11.5-15.5)
[2020-12-15 17:17] LABS: ALT 19 U/L (4-34); AST 27 U/L (14-36); African American GFR (CKD) >90 (>60 ml/min/1.73 sqM); Albumin 4.4 g/dL (3.5-5.0); Alkaline Phosphatase 132 U/L (38-126); Anion Gap 7 mmol/L; Blood Urea Nitrogen 14 mg/dL (7-17); Calcium 9.4 mg/dL (8.4-10.2); Carbon Dioxide 27 mmol/L (22-30); Chloride 103 mmol/L (98-107); Glucose 100 mg/dL (74-99); Non-African American GFR(CKD) >90 (>60 ml/min/1.73 sqM); Potassium 4.4 mmol/L (3.5-5.1); Sodium 137 mmol/L (137-145); Total Bilirubin 0.3 mg/dL (0.2-1.3); Total Protein 7.9 g/dL (6.3-8.2)
--- NOTE | 2020-12-16 05:30 | CT ---
EXAMINATION TYPE: CT abdomen pelvis w con DATE OF EXAM: 12/15/2020 COMPARISON: 05/06/2020 HISTORY: Right renal cancer. CT DLP: 1256.8 mGycm Automated exposure control for dose reduction was used. CONTRAST: Performed with IV Contrast, patient injected with 100ml mL of Isovue 300. Images were obtained with oral and IV contrast from the diaphragm to the floor the pelvis. FINDINGS: Lung bases are clear of consolidation. There is mild subsegmental atelectasis at the lung bases. Live r has normal size. There is 5.7 cm cystic area in the anterior right lobe of the liver. There are cli ps from cholecystectomy. Spleen is intact. There is no pancreatic mass. Stomach is intact. The bile d ucts are not dilated. There is no adrenal mass. There is some cortical thinning upper pole right kidney. There is decreased cortical enhancement upper pole right kidney. I see no discrete renal mass. There is no retroperiton eal adenopathy. Ureters are not dilated. Delayed images show normal renal excretion. There is broad-based ventral hernia below the umbilicus that measures 3 x 2 cm and contains omental f at. The appendix is posterior and appears normal. Bladder distends smoothly. There is no inguinal her jaden. There is no free fluid in the pelvis. There is no mesenteric edema. There is no ascites or free air. There is no bowel obstruction. Lumbar vertebra have normal alignment. There is some disc space narrowing and vacuum disc at L4-5 and L5-S1. The bony pelvis is intact. IMPRESSION: There is hypodensity and cortical thinning upper pole right kidney that could be posttreatment change s in this patient with history of renal cancer. There is apparent involution of the 2 centimeter nodu lar area upper pole right kidney compared to old exam. I do not see evidence of progression of tumor. There is a cyst in the liver unchanged.
== END | disposition home or self-care (01) ==
LOC: RADCTMAIN 16:05
PROVIDERS: ATTEND Family Medicine
DX: K76.89 Other specified diseases of liver (principal); N28.89 Other specified disorders of kidney and ureter; Z85.528 Personal history of other malignant neoplasm of kidney; R10.9 Unspecified abdominal pain
CPT/HCPCS: 80053; 85027; 74177; 36415; Q9967

== ENCOUNTER 2021-02-09 10:53 | Emergency (ER) | payer OTHER ==
[2021-02-09 12:47] VITALS: BP 131/77; PULSE 92; RESP 18; TEMP 98.3
[2021-02-09] MEDS ORDERED: MORPHINE SULFATE 4 MG/ML SYRINGE IM STA (13:06)
[2021-02-09] MEDS ORDERED: CYCLOBENZAPRINE 10MG STARTER 3 TAB BTL PO STA (13:06)
[2021-02-09] MEDS ORDERED: KETOROLAC 15 MG/ML 1 ML VIAL IM STA (13:06)
--- NOTE | 2021-02-09 13:14 | ED ---
General Adult HPI - General Chief complaint: Back Pain/Injury Stated complaint: Back pain Time Seen by Provider: 02/09/21 12:49 Source: patient Mode of arrival: ambulatory Limitations: no limitations - History of Present Illness Initial comments: 56-year-old female patient with past medical history significant for kidney tumor and herniated disc in her back presents to the emergency department today for evaluation of right lower back pain. Patient states the pain has been going on for the last 4-5 days and not getting any better. States the pain does worsen when she stands up straight and when she attempts to lift her right leg. States the pain does occasionally radiate down the right leg started goes down the lateral aspect of the leg to about the knee level. Denies numbness or tingling to the lower extremity. Denies saddle anesthesia or loss of bowel or bladder control. She denies any fever or chills. Denies abdominal pain. Denies any hematuria, dysuria, urinary frequency, urinary urgency. Patient denies any recent rash, cough, shortness of breath, chest pain, diarrhea, constipation, dizziness, weakness, headache, visual changes, or any other complaints. - Related Data Home Medications Medication Instructions Recorded Confirmed Cyclobenzaprine [Flexeril] 10 mg PO DAILY PRN 06/04/19 07/04/20 Ibuprofen [Motrin] 800 mg PO BID PRN 06/04/19 07/04/20 Omeprazole 40 mg PO BID 06/04/19 07/04/20 rOPINIRole HCL [Requip] 1 mg PO HS 06/04/19 07/04/20 Melatonin 10 mg PO HS 01/04/20 07/04/20 Venlafaxine HCl [Effexor XR] 150 mg PO DAILY 01/04/20 07/04/20 busPIRone HCL 10 mg PO BID 06/30/20 07/04/20 hydrOXYzine HCL [Atarax] 25 mg PO TID PRN 06/30/20 07/04/20 Previous Rx's Medication Instructions Recorded HYDROcodone/APAP 5-325MG [[place] 1 tab PO Q4HR PRN #14 tab 07/06/20 5-325] Ondansetron HCl [Zofran] 4 mg PO Q8H PRN #14 tab 07/06/20 Cyclobenzaprine [Flexeril] 10 mg PO TID #15 tab 02/09/21 Ibuprofen [Motrin] 600 mg PO Q8HR PRN #30 tab 02/09/21 Allergies Allergy/AdvReac Type Severity Reaction Status Date / Time methylprednisolone Allergy Unknown Swelling Verified 02/09/21 12:47 tree nut [Nut] Allergy Unknown Swelling, Verified 02/09/21 12:47 Dyspnea Review of Systems ROS Statement: Those systems with pertinent positive or pertinent negative responses have been documented in the HPI. ROS Other: All systems not noted in ROS Statement are negative. Past Medical History Past Medical History: GERD/Reflux, Musculoskeletal Disorder, Pneumonia Additional Past Medical History / Comment(s): Diverticulitis, IBS, Buldging Discs in her back, Hx of nicked liver during gall bladder surgery with peritonitis. ,cyst on kidney., pneumonia (2019). History of Any Multi-Drug Resistant Organisms: None Reported Past Surgical History: Back Surgery, Bowel Resection, Section, Cholecystectomy, Hysterectomy Additional Past Surgical History / Comment(s): 2 herniated cervical discs with cadaver and metal plate., laparoscopies, colonsocopy, oophorectomy, partial bowel resection (states bowel collapsed and adherred to bladder (2016), right partial nephrectomy Past Anesthesia/Blood Transfusion Reactions: No Reported Reaction Past Psychological History: Anxiety, Depression Smoking Status: Never smoker Past Alcohol Use History: Rare Past Drug Use History: Marijuana - Past Family History Mother Family Medical History: No Reported History Father Additional Family Medical History / Comment(s): pt. states her father has been for 20 years, had a necrotic gallbladder ended up turning into pancreatitis and he secondary to that General Exam Limitations: no limitations General appearance: alert, in no apparent distress, other (This is a well- developed, well-nourished adult male patient in no acute distress. Vital signs upon presentation are temperature 98.2F, pulse 92, respirations 18, blood pressure 131/77, pulse ox 98% on room air.) Eye exam: Present: normal appearance, PERRL, EOMI. Absent: scleral icterus, conjunctival injection, periorbital swelling ENT exam: Present: normal exam, normal oropharynx, mucous membranes moist Respiratory exam: Present: normal lung sounds bilaterally. Absent: respiratory distress, wheezes, rales, rhonchi, stridor Cardiovascular Exam: Present: regular rate, normal rhythm, normal heart sounds. Absent: systolic murmur, diastolic murmur, rubs, gallop, clicks GI/Abdominal exam: Present: soft, normal bowel sounds. Absent: distended, tenderness, guarding, rebound, rigid Back exam: Present: normal inspection. Absent: paraspinal tenderness, vertebral tenderness Neurological exam: Present: alert, oriented X3, CN II-XII intact Psychiatric exam: Present: normal affect, normal mood Skin exam: Present: warm, dry, intact, normal color. Absent: rash Course Vital Signs 02/09/21 12:44 Temperature 98.3 F Pulse Rate 92 Respiratory 18 Rate Blood Pressure 131/77 O2 Sat by Pulse 98 Oximetry Medical Decision Making - Medical Decision Making 56 year-old female patient presents to the emergency department for evaluation of right low back pain present for the last 5 days, worsens with movement, and standing. Physical examination is unremarkable. No concerning symptoms of cauda equina. She is afebrile normal vital signs. Urinalysis is negative. She does have a history of right renal cell carcinoma, had CT abdomen and pelvis in December which was negative for any abnormal findings. She was given doses of medications here. Be discharged prescription for Flexeril and ibuprofen. She is instructed to follow-up with her primary care physician for recheck in 1-2 days. She does have an appointment with Dr. Herrera her neurologist tomorrow. Return parameters were discussed in detail. She verbalizes understanding and agrees this plan. Case discussed with my attending Dr. Muniz. - Lab Data Lab Results 02/09/21 Range/Units 13:32 Urine Color Yellow Urine Appearance Clear (Clear) Urine pH 7.0 (5.0-8.0) Ur Specific [place] 1.010 (1.001-1.035) Urine Protein Negative (Negative) Urine Glucose (UA) Negative (Negative) Urine Ketones Negative (Negative) Urine Blood Negative (Negative) Urine Nitrite Negative (Negative) Urine Bilirubin Negative (Negative) Urine Urobilinogen <2.0 (<2.0) mg/dL Ur Leukocyte Esterase Negative (Negative) Disposition Clinical Impression: Back pain, Lumbar radiculopathy Disposition: HOME SELF-CARE Condition: Good Instructions (If sedation given, give patient instructions): Acute Low Back Pain (ED), Lumbar Radiculopathy (ED) Additional Instructions: Take medications as directed. Follow-up through primary care physician for recheck in 1-2 days. Return to the emergency department for any new, worsening, or concerning symptoms. Prescriptions: Cyclobenzaprine [Flexeril] 10 mg PO TID #15 tab Ibuprofen [Motrin] 600 mg PO Q8HR PRN #30 tab PRN Reason: Pain Is patient prescribed a controlled substance at d/c from ED?: No Referrals: Lawson Blankenship [Primary Care Provider] - 1-2 days Time of Disposition: 13:47
[2021-02-09 13:46] LABS: Appearance,Urine Clear (Clear); Bilirubin,Urine Negative (Negative); Blood,Urine Negative (Negative); Color,Urine Yellow; Glucose,Urine (UA) Negative (Negative); Ketones,Urine Negative (Negative); Leukocyte Esterase,Urine Negative (Negative); Nitrite,Urine Negative (Negative); Protein,Urine Negative (Negative); Urobilinogen,Urine <2.0 mg/dL (<2.0)
== END 2021-02-09 13:50 | disposition home or self-care (01) ==
LOC: EC 10:53
DX: M54.16 Radiculopathy, lumbar region (principal); K21.9 Gastro-esophageal reflux disease without esophagitis; F41.9 Anxiety disorder, unspecified; F32.9 Major depressive disorder, single episode, unspecified
CPT/HCPCS: 81003; 99283; 96372; J2270; J1885

== ENCOUNTER → 2021-02-26 | Outpatient (CLI) | payer OTHER ==
--- NOTE | 2021-02-26 12:51 | XR ---
EXAMINATION TYPE: XR chest 2V DATE OF EXAM: 02/26/2021 COMPARISON: Chest x-ray 06/27/2020 HISTORY: C 64.7 TECHNIQUE: Frontal and lateral views of the chest are obtained. FINDINGS: There is no focal air space opacity, pleural effusion, or pneumothorax seen. The cardiac silhouette size is within normal limits. Some minimal strand-like density present at the left lung ba se may reflect scarring or atelectasis likely within the lingula The osseous structures are intact, postop changes are noted in the cervical spine. IMPRESSION: No acute cardiopulmonary process.
== END | disposition home or self-care (01) ==
LOC: RADXRMAIN 10:46
PROVIDERS: ATTEND Urology
DX: C64.9 Malignant neoplasm of unspecified kidney, except renal pelvis (principal)
CPT/HCPCS: 71046

== ENCOUNTER → 2021-05-04 | Outpatient (CLI) | payer OTHER ==
[2021-05-04 12:40] LABS: Basophils % (A) 1 %; Eosinophils # (A) 0.1 k/uL (0-0.7); Eosinophils % (A) 2 %; HCT 38.7 % (34.0-46.0); HGB 12.8 gm/dL (11.4-16.0); Lymphocytes % (A) 44 %; MCH 26.9 pg (25.0-35.0); MCHC 33.2 g/dL (31.0-37.0); Mean Platelet Volume 8.7; Monocytes # (A) 0.2 k/uL (0-1.0); Monocytes % (A) 5 %; Neutrophils # (A) 2.1 k/uL (1.3-7.7); Neutrophils % (A) 46 %; Platelet Count 258 k/uL (150-450); RBC 4.78 m/uL (3.80-5.40); RDW 14.2 % (11.5-15.5); WBC 4.6 k/uL (3.8-10.6)
== END | disposition home or self-care (01) ==
LOC: LABPAT 11:26
PROVIDERS: ATTEND Orthopaedic Surgery
DX: G56.01 Carpal tunnel syndrome, right upper limb (principal)
CPT/HCPCS: 80051; 85025

== ENCOUNTER → 2021-05-04 | Outpatient (CLI) | payer OTHER ==
[2021-05-04 22:19] LABS: Magnesium 1.9 mg/dL (1.5-2.4); Phosphorus 3.9 mg/dL (2.4-5.1)
== END | disposition home or self-care (01) ==
LOC: LABWHC1 11:28
PROVIDERS: ATTEND Psychiatry & Neurology Neurology
DX: M62.838 Other muscle spasm (principal)
CPT/HCPCS: 36415; 82310; 82607; 83735; 84100

== ENCOUNTER 2021-05-15 | Day surgery (SDC) | payer OTHER | END 2021-05-15 10:03 | disposition home or self-care (01) | CPT/HCPCS: 64721; J2250; J0690; J2405; J2001; J3010; J2704 ==

== ENCOUNTER → 2021-05-25 | Outpatient (CLI) | payer OTHER ==
--- NOTE | 2021-05-26 13:29 | MM ---
Reason for exam: screening (asymptomatic). Last mammogram was performed 7 years and 2 months ago. History: Patient is postmenopausal and has history of other cancer at age 55. Took hormonal contraceptives for 10 years. Physical Findings: A clinical breast exam by your physician is recommended on an annual basis and results should be correlated with mammographic findings. MG Screening Mammo w CAD Bilateral CC and MLO view(s) were taken. Prior study comparison: March 22, 2014, mammogram, performed at [facility]. December 22, 2005, bilateral screening mammogram w/CAD. There are scattered fibroglandular densities. Well circumscribed densities bilaterally are most consistent with cystic changes and are presumed benign due to multiplicity and bilateral. ASSESSMENT: Benign, BI-RAD 2 RECOMMENDATION: Routine screening mammogram of both breasts in 1 year. JUDY
== END | disposition home or self-care (01) ==
LOC: RADMAMWWP 07:56
PROVIDERS: ATTEND Family Medicine
DX: Z12.31 Encounter for screening mammogram for malignant neoplasm of breast (principal); Z78.0 Asymptomatic menopausal state; Z85.9 Personal history of malignant neoplasm, unspecified; Z79.3 Long term (current) use of hormonal contraceptives
CPT/HCPCS: 77067

== ENCOUNTER → 2021-06-23 | Outpatient (CLI) | payer OTHER ==
--- NOTE | 2021-06-23 17:20 | XR ---
Calcaneus HISTORY: Pain 2 views of the calcaneus There is a plantar calcaneal spur. Bone mineralization is maintained. No fracture or dislocation. The re is a talar neck spur. Degenerative change present at the intertarsal joints. IMPRESSION: Plantar calcaneal spur.
== END | disposition home or self-care (01) ==
LOC: RADXRMAIN 09:51
PROVIDERS: ATTEND Family Medicine
DX: M77.31 Calcaneal spur, right foot (principal)

== ENCOUNTER 2021-07-24 08:19 | Day surgery (SDC) | payer OTHER ==
[2021-07-01 15:56] VITALS: BMI 31.0
--- NOTE | 2021-07-23 11:54 | HP ---
HISTORY AND PHYSICAL CHIEF COMPLAINT: Left hand pain and numbness. HISTORY OF PRESENT ILLNESS: The patient is a 56-year-old [id number] female who presents with progressive left hand pain and numbness for the past several years, worsening recently. She has a difficult time with gripping and grasping. She notes numbness in all her fingers. She has significant night symptoms. She has tried bracing and medications in the past. PAST MEDICAL HISTORY: Significant for renal cancer and depression. PAST SURGICAL HISTORY: Significant for cervical fusion, right carpal tunnel release, cholecystectomy and colonoscopy. CURRENT MEDICATIONS: Buspirone, fluoxetine, gabapentin, hydrocodone, omeprazole, ropinirole. ALLERGIES: METHYLPREDNISOLONE AND SOLU-MEDROL. FAMILY HISTORY: Significant for diabetes. SOCIAL HISTORY: Negative for current tobacco or alcohol use. REVIEW OF SYSTEMS: Sixteen-point review of systems is otherwise reviewed and is noncontributory. PHYSICAL EXAMINATION: On examination, the patient is approximately 5 feet 9 inches, 200 pounds of endomorphic habitus. HEENT exam is nonfocal. She does have limited C-spine motion with negative Spurling's. She is nontender about the left shoulder and elbow. On examination of her left wrist, she has a positive Tinel's over the carpal canal. Abductor pollicis brevis strength 5 minus over 5. She has some child welfare specialist weakness. She has symmetric wrist range of motion. EMG report from 01/09/2019 of the left upper extremity by report showed moderate carpal tunnel syndrome. IMPRESSION: 1. Left carpal tunnel syndrome, symptomatic. 2. History of cervical fusion. RECOMMENDATIONS: I talked to the patient at length regarding her condition along with treatment options. At this point she notes she is quite symptomatic and limited because of pain and numbness despite previous conservative measures. After thorough discussion, she opted to proceed with surgery. We will plan to proceed with left carpal tunnel release. We will likely perform that utilizing local anesthetic and IV sedation as an outpatient procedure. MMODL / IJN: [id number] /
[~2021-07-24 08:19] MED LIST changes: +HYDROmorphone 0.5 MG/0.5 ML SYRINGE IVP PRN; +LACTATED RINGERS 1,000 ML IV SCH; +LIDOCAINE 1% (10MG/ML) FOR IV START INTRADERMA PRN; +ONDANSETRON 4 MG/2 ML VIAL IVP ONE
[2021-07-24 08:57] VITALS: RESP 16; TEMP 96.8
[2021-07-24] MEDS ORDERED: PROPOFOL 10 MG/ML 20 ML VIAL IV ONE (10:10)
[2021-07-24] MEDS ORDERED: MIDAZOLAM 2 MG/2 ML VIAL ONE (10:10)
[2021-07-24] MEDS ORDERED: fentaNYL (PF) 50 MCG/ML 2 ML AMP ONE (10:10)
[2021-07-24] MEDS ORDERED: BUPIVACAINE (PF) 0.25% 30 ML VIAL SQ ONE (10:16)
--- NOTE | 2021-07-24 10:46 | P.OP ---
Date of Procedure: 07/24/21 Preoperative Diagnosis: Left carpal tunnel syndrome Postoperative Diagnosis: Same Procedure(s) Performed: Left carpal tunnel release Anesthesia: MAC, local Surgeon: Adalid Amezquita Estimated Blood Loss (ml): 1 Pathology: none sent Condition: stable Disposition: PACU Indications for Procedure: The patient's a 56-year-old female presents with progressive left hand pain and numbness for the past several years despite conservative measures. A discussion of the risks and benefits of operative intervention versus continued conservative measures was made with patient her Proceed with surgery. Operative risks to include infection, neurovascular injury, development of blood clots, possible incomplete resolution of symptoms, possible recurrence, possible development reflex sympathetic dystrophy were discussed. Informed consent was obtained. Operative Findings: As below Description of Procedure: The patient was brought to the operating room, and after induction of IV sedation the left upper extremity was prepped and draped in normal fashion. The proposed incision site was outlined skin marker in line with the radial aspect the fourth ray extending from the volar wrist crease distally 2-1/2 cm. One quarter percent plain Marcaine was injected into the proposed incision site. 7 mL was utilized. The tourniquet was inflated to 250 mmHg. The skin incision was then made. The skin was incised sharply. Subcutaneous tissues were divided sharply the superficial palmar fascia was identified and split in line with the skin incision. The transverse carpal ligament was identified and transected under direct visualization distally to level the palmar fat pad. Proximal was taken level of the volar wrist crease. A plane above and below the transverse carpal ligament was then bluntly developed with tenotomies. The confluence of the distal forearm fascia and the transverse carpal ligament was then transected under direct visualization proximally with the tines pointed in the ulnar direction. I felt this was adequate proximal release. Neural lysis was not performed. The wound was irrigated with normal saline. Electrocautery was used for hemostasis. The skin was reapproximated with simple 3-0 nylon sutures. A sterile dressing was applied. The tourniquet was deflated with less than 15 minutes total tourniquet time. Patient was awoken from sedation and transferred to the recovery room in good condition. Blood loss was estimated 1 mL. No complications were incurred. Sponge and needle counts were correct at the end the case.
[2021-07-24 11:24] VITALS: BP 127/64; PULSE 73
== END 2021-07-24 11:44 | disposition home or self-care (01) ==
LOC: OR 08:19
PROVIDERS: ATTEND Orthopaedic Surgery
DX: G56.02 Carpal tunnel syndrome, left upper limb (principal); F32.9 Major depressive disorder, single episode, unspecified; Z88.8 Allergy status to other drugs, medicaments and biological substances; Z91.018 Allergy to other foods; F41.9 Anxiety disorder, unspecified; Z85.528 Personal history of other malignant neoplasm of kidney; K21.9 Gastro-esophageal reflux disease without esophagitis; Z79.899 Other long term (current) drug therapy
CPT/HCPCS: 64721; J2250; J0690; J2405; J3010; J2704

== ENCOUNTER → 2021-08-20 | Outpatient (CLI) | payer OTHER | END | disposition home or self-care (01) | LOC: LABWHC1 14:45 | PROVIDERS: ATTEND Family Medicine | DX: Z20.822 Contact with and (suspected) exposure to COVID-19 (principal); J06.9 Acute upper respiratory infection, unspecified | CPT/HCPCS: U0003; U0005 ==

== ENCOUNTER → 2022-03-01 | Outpatient (CLI) | payer OTHER ==
--- NOTE | 2022-03-01 12:51 | XR ---
EXAMINATION TYPE: XR chest 2V DATE OF EXAM: 03/01/2022 COMPARISON: Chest x-ray 02/26/2021 HISTORY: C 64.1 TECHNIQUE: Frontal and lateral views of the chest are obtained. FINDINGS: There is no focal air space opacity, pleural effusion, or pneumothorax seen. The cardiac silhouette size is within normal limits. Prominent lung volume is consistent with underlying COPD. T he osseous structures are intact, postop changes are noted to the cervical spine, thoracic spondylosi s is present. IMPRESSION: No acute cardiopulmonary process.
== END | disposition home or self-care (01) ==
LOC: RADXRMAIN 09:43
PROVIDERS: ATTEND Urology
DX: C64.1 Malignant neoplasm of right kidney, except renal pelvis (principal)
CPT/HCPCS: 71046

== ENCOUNTER 2022-03-10 07:51 | Day surgery (SDC) | payer OTHER ==
[2022-03-08 16:25] VITALS: BMI 29.5
--- NOTE | 2022-03-10 07:42 | P.GSHP ---
History of Present Illness H&P Date: 03/10/22 CHIEF COMPLAINT: GERD and colitis HISTORY OF PRESENT ILLNESS: The patient is a 57-year-old female who presents with gastroesophageal reflux disease and colitis. Upper and lower endoscopy were offered for further evaluation and management. PAST MEDICAL HISTORY: Please see list. PAST SURGICAL HISTORY: Please see list. MEDICATIONS: Please see list. ALLERGIES: Please see list. SOCIAL HISTORY: No illicit drug use FAMILY HISTORY: No reports of Crohn disease or ulcerative colitis. REVIEW OF ORGAN SYSTEMS: CONSTITUTIONAL: No reports of fevers or chills. PHYSICAL EXAM: VITAL SIGNS: Stable GENERAL: Well-developed pleasant in no acute distress. HEENT: No scleral icterus. Extraocular movements grossly intact. Moist buccal mucosa. NECK: Supple without lymphadenopathy. CHEST: Unlabored respirations. Equal bilateral excursions. CARDIOVASCULAR: Regular rate and rhythm. Distal 2+ pulses. ABDOMEN: Soft, nondistended. MUSCULOSKELETAL: No clubbing, cyanosis, or edema. ASSESSMENT: 1. Gastroesophageal reflux disease 2. Colitis PLAN: 1. Recommend proceeding with an upper and lower endoscopy Past Medical History Past Medical History: Cancer, GERD/Reflux, Musculoskeletal Disorder, Pneumonia Additional Past Medical History / Comment(s): Diverticulitis, IBS, Buldging Discs in her LOWER back, Hx of nicked liver during gall bladder surgery with peritonitis. ,cyst on kidney., pneumonia (2019),kidney CA 2019 History of Any Multi-Drug Resistant Organisms: None Reported Past Surgical History: Back Surgery, Bowel Resection, Section, Cholecystectomy, Hysterectomy Additional Past Surgical History / Comment(s): 2 herniated cervical discs with cadaver and metal plate., laparoscopies, colonsocopy, oophorectomy, partial tatyana l resection (states bowel collapsed and adherred to bladder (2015), right partial nephrectomy,c sections x3, BILATERAL CARPAL TUNNEL REPAIR Past Anesthesia/Blood Transfusion Reactions: No Reported Reaction Additional Past Anesthesia/Blood Transfusion Reaction / Comment(s): no hx blood transfusion Smoking Status: Never smoker - Past Family History Mother Family Medical History: No Reported History Father Additional Family Medical History / Comment(s): pt. states her father has been for 20 years, had a necrotic gallbladder ended up turning into pancreatitis and he secondary to that Medications and Allergies Home Medications Medication Instructions Recorded Confirmed Type Omeprazole 40 mg PO BID 06/04/19 03/08/22 History Gabapentin 600 mg PO BID 05/13/21 03/08/22 History HYDROcodone/APAP 7.5-325MG [[place] 1 tab PO TID PRN 05/13/21 03/08/22 History 7.5-325] rOPINIRole HCL [Requip] 1 mg PO HS 07/01/21 03/08/22 History ALPRAZolam [Xanax] 0.5 mg PO BID PRN 11/20/21 03/08/22 History Cyclobenzaprine [Flexeril] 5 mg PO DAILY PRN 11/20/21 03/08/22 History EPINEPHrine (Auto Inject) [Epipen] 0.3 mg IM ONCE PRN 11/20/21 03/08/22 History FLUoxetine HCL [Sarafem] 60 mg PO 0430 11/20/21 03/08/22 History Ondansetron Odt [Zofran Odt] 4 mg PO Q8H PRN 11/20/21 03/08/22 History busPIRone HCL [Buspar] 30 mg PO Q12H 11/20/21 03/08/22 History Allergies Allergy/AdvReac Type Severity Reaction Status Date / Time methylprednisolone Allergy Unknown Swelling Verified 03/08/22 15:59 tree nut [Nut] Allergy Unknown Anaphylaxis Verified 03/08/22 15:59
[~2022-03-10 07:51] MED LIST changes: -HYDROmorphone 0.5 MG/0.5 ML SYRINGE IVP PRN; -MIDAZOLAM 2 MG/2 ML VIAL IV PRN; -ONDANSETRON 4 MG/2 ML VIAL IVP ONE
[2022-03-10 08:52] VITALS: TEMP 97.2
[2022-03-10] MEDS ORDERED: LIDOCAINE 2% INJ 20 MG/ML (2 ML VIAL) ONE (09:08)
[2022-03-10] MEDS ORDERED: PROPOFOL 10 MG/ML 20 ML VIAL IV ONE (09:08)
--- NOTE | 2022-03-10 09:49 | P.PCN ---
Date of Procedure: 03/10/22 Description of Procedure: PREOPERATIVE DIAGNOSIS: Gastroesophageal reflux disease. POSTOPERATIVE DIAGNOSIS: Gastroesophageal reflux disease. Gastric ulcers with bleeding Gastritis Diaphragmatic hiatal hernia OPERATION: Esophagogastroduodenoscopy with biopsies along antrum and duodenal SURGEON: Yazmin Gonzalez MD ANESTHESIA: MAC. INDICATIONS: The patient is a 57-year-old female who presents with reflux disease. Benefits and risks of the procedure were described. Informed consent was obtained. DESCRIPTION: The patient was brought into the endoscopy suite and laid in the left lateral decubitus position. An Olympus gastroscope was passed along the posterior oropharynx down to the distal esophagus where the squamocolumnar junction was encountered at 36 cm from the incisors. The stomach was entered and no bile reflux was found. Additional findings are listed below. Biopsies with cold forceps were obtained of the antrum. The first through third portion of the duodenum was examined. Retroflexion of the scope confirmed Hill grade 3 lower esophageal valve. The squamocolumnar junction demonstrated LA grade B erosive esophagitis. The stomach was desufflated. The patient tolerated the procedure well. FINDINGS: Squamocolumnar junction 36 cm from the incisors. Diaphragmatic hiatus at 40 cm. Hiatal hernia, 4 cm Hill grade 3 lower esophageal valve. LA grade B erosive esophagitis. Duodenitis and biopsies obtained Superficial gastric ulcers along the gastric body, 4 mm with biopsies obtained Chronic gastritis with recent bleed RECOMMENDATIONS: Recommend Carafate and omeprazole treatment
[2022-03-10 10:03] VITALS: BP 110/78; PULSE 67; RESP 18
--- NOTE | 2022-03-10 10:10 | P.PCN ---
Date of Procedure: 03/10/22 Description of Procedure: PREOPERATIVE DIAGNOSIS: Change in bowel habits with colitis Rectal bleeding POSTOPERATIVE DIAGNOSIS: Change in bowel habits with colitis Rectal bleeding Partial sigmoid colectomy OPERATION: Colonoscopy to the cecum, ileocecal valve and appendiceal orifice. Colonoscopy with random cold forceps biopsy SURGEON: Yazmin Gonzalez MD. ANESTHESIA: MAC. INDICATIONS: The patient is a 57-year-old female who presents for which change in bowel habits, colitis and blood in stools. Benefits and risks were described and informed consent was obtained. DESCRIPTION OF PROCEDURE: The patient had undergone Sutab prep. The patient had been brought into the operating room and laid in the left lateral decubitus position. After adequate intravenous sedation, the rectum was examined with 2% lidocaine jelly. External hemorrhoids were encountered. The rectal tone was within normal limits. No lesions were palpated in the rectal vault. An Olympus colonoscope was advanced until the cecum, ileocecal valve and appendiceal orifice were clearly viewed. The prep was good. Presence of sigmoid colectomy was identified at 10 cm from the anal verge. No scattered diverticulosis was encountered. No colonic polyps were found. Random cold forceps biopsies were obtained for colitis. Retrof lexion of the scope demonstrated grade 1 internal hemorrhoids without active bleeding or inflammation. The colon was desufflated. The patient had tolerated the procedure well. Withdrawal time was over 6 minutes. FINDINGS: Aronchick preparation quality scale 2 (1-5) Internal hemorrhoids, grade 1 External prolapsed hemorrhoids, grade 2 No arteriovenous malformations. No adenomatous polyps. Presence of sigmoid colectomy was identified at 10 cm from the anal verge. No scattered diverticulosis was encountered. Random biopsies obtained for colitis. RECOMMENDATIONS: Repeat lower endoscopy in 5 years, 2026 Plan - Discharge Summary Discharge Rx Participant: No New Discharge Prescriptions: New Sucralfate [Carafate] 1 gm PO BID #30 tablet Continue Omeprazole 40 mg PO BID EPINEPHrine (Auto Inject) [Epipen] 0.3 mg IM ONCE PRN PRN Reason: Anaphylaxis FLUoxetine HCL [Sarafem] 60 mg PO 0430 Cyclobenzaprine [Flexeril] 5 mg PO DAILY PRN PRN Reason: Muscle Spasm HYDROcodone/APAP 7.5-325MG [[place] 7.5-325] 1 tab PO TID PRN PRN Reason: Pain Gabapentin 600 mg PO BID rOPINIRole HCL [Requip] 1 mg PO HS Ondansetron Odt [Zofran ODT] 4 mg PO Q8H PRN PRN Reason: Nausea busPIRone HCL [Buspar] 30 mg PO Q12H ALPRAZolam [Xanax] 0.5 mg PO BID PRN PRN Reason: Anxiety Discharge Medication List Omeprazole 40 mg PO BID 06/04/19 [History] Gabapentin 600 mg PO BID 05/13/21 [History] HYDROcodone/APAP 7.5-325MG [[place] 7.5-325] 1 tab PO TID PRN 05/13/21 [History] rOPINIRole HCL [Requip] 1 mg PO HS 07/01/21 [History] ALPRAZolam [Xanax] 0.5 mg PO BID PRN 11/20/21 [History] Cyclobenzaprine [Flexeril] 5 mg PO DAILY PRN 11/20/21 [History] EPINEPHrine (Auto Inject) [Epipen] 0.3 mg IM ONCE PRN 11/20/21 [History] FLUoxetine HCL [Sarafem] 60 mg PO 0430 11/20/21 [History] Ondansetron Odt [Zofran ODT] 4 mg PO Q8H PRN 11/20/21 [History] busPIRone HCL [Buspar] 30 mg PO Q12H 11/20/21 [History] Sucralfate [Carafate] 1 gm PO BID #30 tablet 03/10/22 [Rx] Follow up Appointment(s)/Referral(s): Yazmin Gonzalez MD [STAFF PHYSICIAN] - 03/23/22 Patient Instructions/Handouts: *[facility] - (Anesthesia) Endoscopy Discharge Instructions, Colonoscopy (DC), Upper Endoscopy (DC), Diet for Stomach Ulcers and Gastritis (ED), Peptic Ulcer (GEN), Hiatal Hernia (ED), Colitis (ED) Activity/Diet/Wound Care/Special Instructions: Repeat colonoscopy in 5 years, 2026 Discharge Disposition: HOME SELF-CARE
== END 2022-03-10 10:51 | disposition home or self-care (01) ==
LOC: ORWHC2ENDO 07:51
PROVIDERS: ATTEND Surgery Plastic and Reconstructive Surgery
DX: K29.50 Unspecified chronic gastritis without bleeding (principal); K25.4 Chronic or unspecified gastric ulcer with hemorrhage; K21.9 Gastro-esophageal reflux disease without esophagitis; K44.9 Diaphragmatic hernia without obstruction or gangrene; K58.9 Irritable bowel syndrome, unspecified; K31.89 Other diseases of stomach and duodenum; Z83.79 Family history of other diseases of the digestive system; Z85.528 Personal history of other malignant neoplasm of kidney; Z90.722 Acquired absence of ovaries, bilateral; Z90.49 Acquired absence of other specified parts of digestive tract
CPT/HCPCS: 45380; 43239; 88305; 88342; J2704; J2001

== ENCOUNTER 2022-06-17 11:56 | Emergency (ER) | payer OTHER ==
[2022-06-17 12:13] VITALS: TEMP 98.3
[2022-06-17] MEDS ORDERED: SODIUM CHLORIDE 0.9% 500 ML 500 ML IV ONE (12:30)
--- NOTE | 2022-06-17 12:46 | ED ---
General Adult HPI - General Chief complaint: Dental/Oral Stated complaint: lip injury Time Seen by Provider: 06/17/22 12:15 Source: patient, RN notes reviewed Mode of arrival: ambulatory Limitations: no limitations - History of Present Illness Initial comments: 57-year-old female presents emergency Department with chief complaint right- sided facial swelling. Patient states she was diagnosed with dental infection a few days ago was placed on amoxicillin by her dentist. Patient states she woke up with increasing pain, swelling to her face. Patient denies any fevers states that she had mild chills moderate discomfort especially with palpation to her face. She has pain with opening closing her jaw denies any shortness of breath no headache. Patient has been taking her antiemetics as directed. - Related Data Home Medications Medication Instructions Recorded Confirmed Omeprazole 40 mg PO BID 06/04/19 03/10/22 Gabapentin 600 mg PO BID 05/13/21 03/10/22 HYDROcodone/APAP 7.5-325MG [[place] 1 tab PO TID PRN 05/13/21 03/10/22 7.5-325] rOPINIRole HCL [Requip] 1 mg PO HS 07/01/21 03/10/22 ALPRAZolam [Xanax] 0.5 mg PO BID PRN 11/20/21 03/10/22 Cyclobenzaprine [Flexeril] 5 mg PO DAILY PRN 11/20/21 03/10/22 EPINEPHrine (Auto Inject) [Epipen] 0.3 mg IM ONCE PRN 11/20/21 03/10/22 FLUoxetine HCL [Sarafem] 60 mg PO 0430 11/20/21 03/10/22 Ondansetron Odt [Zofran ODT] 4 mg PO Q8H PRN 11/20/21 03/10/22 busPIRone HCL [Buspar] 30 mg PO Q12H 11/20/21 03/10/22 Previous Rx's Medication Instructions Recorded Sucralfate [Carafate] 1 gm PO BID #30 tablet 03/10/22 clindamycin HCL 300 mg PO QID #40 cap 06/17/22 Allergies Allergy/AdvReac Type Severity Reaction Status Date / Time methylprednisolone Allergy Unknown Swelling Verified 03/10/22 08:52 tree nut [Nut] Allergy Unknown Anaphylaxis Verified 03/10/22 08:52 Review of Systems ROS Statement: Those systems with pertinent positive or pertinent negative responses have been documented in the HPI. ROS Other: All systems not noted in ROS Statement are negative. Past Medical History Past Medical History: GERD/Reflux, Musculoskeletal Disorder, Pneumonia Additional Past Medical History / Comment(s): Carpel tunnel [place] wrist,Diverticulitis, IBS, Buldging Discs in her back, Hx of nicked liver during gall bladder surgery with peritonitis. ,cyst on kidney., pneumonia (2019),kidney CA 2020 History of Any Multi-Drug Resistant Organisms: None Reported Past Surgical History: Back Surgery, Bowel Resection, Section, Cholecystectomy, Hysterectomy Additional Past Surgical History / Comment(s): 2 herniated cervical discs with cadaver and metal plate., laparoscopies, colonsocopy, oophorectomy, partial bowel resection (states bowel collapsed and adherred to bladder (2016), right partial nephrectomy,c sections x3 Past Anesthesia/Blood Transfusion Reactions: No Reported Reaction Additional Past Anesthesia/Blood Transfusion Reaction / Comment(s): no hx blood transfusion Past Psychological History: Anxiety, Depression Smoking Status: Never smoker Past Alcohol Use History: None Reported Past Drug Use History: Marijuana - Past Family History Mother Family Medical History: No Reported History Father Additional Family Medical History / Comment(s): pt. states her father has been for 20 years, had a necrotic gallbladder ended up turning into pancreatitis and he secondary to that General Exam Limitations: no limitations General appearance: alert, in no apparent distress Head exam: Present: atraumatic, normocephalic, normal inspection Eye exam: Present: normal appearance, PERRL, EOMI. Absent: scleral icterus, conjunctival injection, periorbital swelling ENT exam: Present: mucous membranes moist, TM's normal bilaterally, normal external ear exam. Absent: normal oropharynx (Right mandibular swelling noted mild erythema and tenderness with palpation no drainable abscess noted) Neck exam: Present: normal inspection, full ROM. Absent: tenderness, meningismus, lymphadenopathy Respiratory exam: Present: normal lung sounds bilaterally. Absent: respiratory distress, wheezes, rales, rhonchi, stridor Cardiovascular Exam: Present: regular rate, normal rhythm, normal heart sounds. Absent: systolic murmur, diastolic murmur, rubs, gallop, clicks Course Vital Signs 06/17/22 12:08 Temperature 98.3 F Pulse Rate 92 Respiratory 18 Rate Blood Pressure 120/72 O2 Sat by Pulse 96 Oximetry Medical Decision Making - Medical Decision Making 57-year-old presented for abdominal pain, swelling. CT is obtained given swelling on current antibiotics is no drainable abscess patient has cellulitic changes patient be started on clindamycin as she is only on amoxicillin 500 3 times a day. Patient return for any worsening change symptoms. - Lab Data Result diagrams: 06/17/22 12:46 06/17/22 12:46 Lab Results 06/17/22 06/17/22 06/17/22 Range/Units 12:46 12:46 12:46 WBC 7.9 (3.8-10.6) k/uL RBC 4.21 (3.80-5.40) m/uL Hgb 12.2 (11.4-16.0) gm/dL Hct 36.5 (34.0-46.0) % MCV 86.6 (80.0-100.0) fL MCH 29.0 (25.0-35.0) pg MCHC 33.5 (31.0-37.0) g/dL RDW 14.0 (11.5-15.5) % Plt Count 268 (150-450) k/uL MPV 8.9 Neutrophils % 78 % Lymphocytes % 17 % Monocytes % 3 % Eosinophils % 1 % Basophils % 0 % Neutrophils # 6.2 (1.3-7.7) k/uL Lymphocytes # 1.3 (1.0-4.8) k/uL Monocytes # 0.3 (0-1.0) k/uL Eosinophils # 0.0 (0-0.7) k/uL Basophils # 0.0 (0-0.2) k/uL Sodium 136 L (137-145) mmol/L Potassium 3.8 (3.5-5.1) mmol/L Chloride 106 (98-107) mmol/L Carbon Dioxide 24 (22-30) mmol/L Anion Gap 6 mmol/L BUN 14 (7-17) mg/dL Creatinine 0.71 (0.52-1.04) mg/dL Est GFR (CKD-EPI)AfAm >90 (>60 ml/min/1.73 sqM) Est GFR (CKD-EPI)NonAf >90 (>60 ml/min/1.73 sqM) Glucose 107 H (74-99) mg/dL Plasma Lactic Acid Kit 0.5 L (0.7-2.0) mmol/L Calcium 8.9 (8.4-10.2) mg/dL Disposition Clinical Impression: Dental infection Disposition: HOME SELF-CARE Condition: Stable Instructions (If sedation given, give patient instructions): Toothache (ED) Additional Instructions: Please return to the Emergency Department if symptoms worsen or any other concerns. Prescriptions: clindamycin HCL 300 mg PO QID #40 cap Is patient prescribed a controlled substance at d/c from ED?: No Referrals: Lawson Blankenship [Primary Care Provider] - 1-2 days Time of Disposition: 14:11
[2022-06-17 12:52] LABS: Basophils % (A) 0 %; Eosinophils % (A) 1 %; HCT 36.5 % (34.0-46.0); HGB 12.2 gm/dL (11.4-16.0); Lymphocytes # (A) 1.3 k/uL (1.0-4.8); Lymphocytes % (A) 17 %; MCHC 33.5 g/dL (31.0-37.0); MCV 86.6 fL (80.0-100.0); Mean Platelet Volume 8.9; Monocytes # (A) 0.3 k/uL (0-1.0); Monocytes % (A) 3 %; Neutrophils # (A) 6.2 k/uL (1.3-7.7); Neutrophils % (A) 78 %; Platelet Count 268 k/uL (150-450); RBC 4.21 m/uL (3.80-5.40); WBC 7.9 k/uL (3.8-10.6)
[2022-06-17 13:02] LABS: African American GFR (CKD) >90 (>60 ml/min/1.73 sqM); Anion Gap 6 mmol/L; Blood Urea Nitrogen 14 mg/dL (7-17); Calcium 8.9 mg/dL (8.4-10.2); Carbon Dioxide 24 mmol/L (22-30); Chloride 106 mmol/L (98-107); Glucose 107 mg/dL (74-99); Non-African American GFR(CKD) >90 (>60 ml/min/1.73 sqM); Potassium 3.8 mmol/L (3.5-5.1); Sodium 136 mmol/L (137-145)
[2022-06-17] MEDS ORDERED: KETOROLAC 15 MG/ML 1 ML VIAL IVP STA (13:58)
--- NOTE | 2022-06-17 14:01 | CT ---
EXAMINATION TYPE: CT soft tissue neck w con DATE OF EXAM: 06/17/2022 COMPARISON: None HISTORY: 57-year-old female with right sided neck swelling, lip swelling TECHNIQUE: Contiguous axial scanning of the soft tissues of the neck performed with IV Contrast, gavin ent injected with 100 mL of Isovue 300. Coronal/sagittal reconstructions performed. CT DLP: 279 mGycm Automated exposure control for dose reduction was used. FINDINGS: Bovine configuration to the aortic arch. Degenerative change at the bilateral sternoclavicular joints. Visualized intracranial structures, orbits and globes, paranasal sinuses, mastoid air cells well pneu matized. Nasopharynx is clear. Marked inflammatory soft tissue swelling along the right side of the jaw. This results in asymmetric thickening of the right platysma. Some scattered periodontal disease present but more so on the left with dental caries. No large. Foca l lucency is seen. No abnormal fluid collection identified. Oral cavity is limited by dental amalgam artifact. Some asymmetrically larger right subdural space lymph nodes measuring up to 8 mm short axis. Glottic and subglottic structures as well as the tracheal column and visualized upper lungs are clear . The thyroid gland, submandibular glands are satisfactory. Parotid glands bilaterally atrophic. There is a 1.9 cm cystic nodule along the right posterior base of the skull. IMPRESSION: 1. MARKED CELLULITIS OVERLYING THE RIGHT JAW. UNABLE TO IDENTIFY A DISCRETE SOURCE FOR THE INFECTION. CLINICALLY CORRELATE. NO ABSCESS FORMATION. 2. THERE IS SCATTERED PERIODONTAL DISEASE AND DENTAL CARIES THOUGH MORE SO ON THE LEFT SIDE. 3. A 1.9 CM CYSTIC NODULE ALONG THE RIGHT POSTERIOR BASE OF THE SKULL JUST DEEP TO THE SKIN SURFACE. SUSPECT A SEBACEOUS CYST. CLINICALLY CORRELATE.
[2022-06-17] MEDS ORDERED: cefTRIAXone IN SWFI 1,000 MG/10 ML SYRINGE IVP STA (14:08)
[2022-06-17] MEDS ORDERED: ACET/COD 300 MG/30 MG STARTER PACK 6 TAB BTL PO STA (14:11)
[2022-06-17] MEDS ORDERED: ONDANSETRON 4 MG/2 ML VIAL IVP STA (14:14)
[2022-06-17] MEDS ORDERED: HYDROmorphone 1 MG/ML 1 ML SYRINGE IVP STA (14:14)
[2022-06-17 14:35] VITALS: BP 136/79; PULSE 87; RESP 20
== END 2022-06-17 14:35 | disposition home or self-care (01) ==
LOC: EC 11:56
DX: K04.7 Periapical abscess without sinus (principal); K21.9 Gastro-esophageal reflux disease without esophagitis; Z79.899 Other long term (current) drug therapy; Z88.0 Allergy status to penicillin; Z91.018 Allergy to other foods
CPT/HCPCS: 36415; 80048; 83605; 85025; 70491; 99284; 96374; 96375; J2405; J0696; J1170; J1885; Q9967

== ENCOUNTER 2023-02-26 13:04 | Emergency (ER) | payer OTHER ==
[2023-02-26 14:10] VITALS: RESP 16
--- NOTE | 2023-02-26 14:47 | ED ---
General Adult HPI - General Chief complaint: Upper Respiratory Infection Stated complaint: chest congestion/covid testing Time Seen by Provider: 02/26/23 14:18 Source: patient, RN notes reviewed, old records reviewed Mode of arrival: ambulatory Limitations: no limitations - History of Present Illness Initial comments: Patient is a 58-year-old female with past medical history remarkable for GERD who presents emergency Department after possible exposure Covid 19. Symptoms began on Tuesday. Has been having nasal congestion, nonproductive cough since then. Also low-grade fevers and joint pain. Denies any nausea, vomiting, diarrhea. Denies any abdominal pain or chest pain or shortness of breath. His no other acute complaint at this time. Took a home Covid test yesterday and it was negative. Presents for evaluation for possible Covid. Workup was started in triage. - Related Data Home Medications Medication Instructions Recorded Confirmed Omeprazole 40 mg PO BID 06/04/19 03/10/22 Gabapentin 600 mg PO BID 05/13/21 03/10/22 HYDROcodone/APAP 7.5-325MG [Ona 1 tab PO TID PRN 05/13/21 03/10/22 7.5-325] rOPINIRole HCL [Requip] 1 mg PO HS 07/01/21 03/10/22 ALPRAZolam [Xanax] 0.5 mg PO BID PRN 11/20/21 03/10/22 Cyclobenzaprine [Flexeril] 5 mg PO DAILY PRN 11/20/21 03/10/22 EPINEPHrine (Auto Inject) [Epipen] 0.3 mg IM ONCE PRN 11/20/21 03/10/22 FLUoxetine HCL [Sarafem] 60 mg PO 0430 11/20/21 03/10/22 Ondansetron Odt [Zofran ODT] 4 mg PO Q8H PRN 11/20/21 03/10/22 busPIRone HCL [Buspar] 30 mg PO Q12H 11/20/21 03/10/22 Previous Rx's Medication Instructions Recorded Sucralfate [Carafate] 1 gm PO BID #30 tablet 03/10/22 clindamycin HCL 300 mg PO QID #40 cap 06/17/22 Allergies Allergy/AdvReac Type Severity Reaction Status Date / Time methylprednisolone Allergy Unknown Swelling Verified 04/15/23 13:19 tree nut [Nut] Allergy Unknown Anaphylaxis Verified 02/26/23 13:19 Review of Systems ROS Statement: Those systems with pertinent positive or pertinent negative responses have been documented in the HPI. Review of Systems: CONST: Denies fever EYES: Denies blurry vision ENT: Endorses nasal congestion C/V: Denies Chest pain RESP: Denies shortness of breath GI: Denies abdominal pain : Denies dysuria SKIN: Denies rash. MSK: Denies joint pain. NEURO: Denies headache ROS Other: All systems not noted in ROS Statement are negative. Past Medical History Past Medical History: GERD/Reflux, Musculoskeletal Disorder, Pneumonia Additional Past Medical History / Comment(s): Carpel tunnel marina wrist,Diverticulitis, IBS, Buldging Discs in her back, Hx of nicked liver during gall bladder surgery with peritonitis. ,cyst on kidney., pneumonia (2019),kidney CA 2019 History of Any Multi-Drug Resistant Organisms: None Reported Past Surgical History: Back Surgery, Bowel Resection, Section, Rachel cystectomy, Hysterectomy Additional Past Surgical History / Comment(s): 2 herniated cervical discs with cadaver and metal plate., laparoscopies, colonsocopy, oophorectomy, partial bowel resection (states bowel collapsed and adherred to bladder (2016), right partial nephrectomy,c sections x3 Past Anesthesia/Blood Transfusion Reactions: No Reported Reaction Additional Past Anesthesia/Blood Transfusion Reaction / Comment(s): no hx blood transfusion Past Psychological History: Anxiety, Depression Smoking Status: Never smoker Past Alcohol Use History: None Reported Past Drug Use History: Marijuana - Past Family History Mother Family Medical History: No Reported History Father Additional Family Medical History / Comment(s): pt. states her father has been for 20 years, had a necrotic gallbladder ended up turning into pancreatitis and he secondary to that General Exam - General Exam Comments Initial Comments: General: Appears in no acute distress. HEAD: Normal with no signs of head trauma. EYES: EOMI. ENT: Nasal congestion. Posterior oropharynx within normal limits. RESPIRATORY: No respiratory distress. C/V: Regular rate and rhythm. ABD: Abdomen is nondistended. EXT: No obvious deformity. SKIN: No rashes or lesions observed on exposed skin. NEURO: Alert and oriented. Limitations: no limitations Course Vital Signs 02/26/23 02/26/23 02/26/23 13:15 14:06 15:23 Temperature 98.3 F 98 F Pulse Rate 73 74 Respiratory 20 16 16 Rate Blood Pressure 107/71 108/74 O2 Sat by Pulse 100 Oximetry Medical Decision Making - Medical Decision Making Was pt. sent in by a medical professional or institution (, RADHA, SALES ACCOUNT MANAGER, urgent care, hospital, or fpc...) When possible be specific @ -No Did you speak to anyone other than the patient for history (EMS, parent, family, police, friend...)? What history was obtained from this source @ -No Did you review nursing and triage notes (agree or disagree)? Why? @ -I reviewed and agree with nursing and triage notes Were old charts reviewed (outside hosp., previous admission, EMS record, old EKG, old radiological studies, urgent care reports/EKG's, fpc records)? Report findings @ -No old charts were reviewed Differential Diagnosis (chest pain, altered mental status, abdominal pain women, abdominal pain men, vaginal bleeding, weakness, fever, dyspnea, syncope, headache, dizziness, GI bleed, back pain, seizure, CVA, palpatations, mental health, musculoskeletal)? @ -Covid 19 infection, pneumonia, influenza infection, URI, viral syndrome. This list is not all inclusive EKG interpreted by me (3pts min.). @ -None done X-rays interpreted by me (1pt min.). @ -None done CT interpreted by me (1pt min.). @ -None done U/S interpreted by me (1pt. min.). @ -None done What testing was considered but not performed or refused? (CT, X-rays, U/S, labs)? Why? @ -I offered the patient chest x-ray which she declines at this time. What meds were considered but not given or refused? Why? @ -None Did you discuss the management of the patient with other professionals (professionals i.e. RADHA Chowdhury, SALES ACCOUNT MANAGER, lab, RT, psych nurse, marriage and family social worker, powertrain engineer, teacher, forestry technical officer, rifle case repairer)? Give summary @ -No Was smoking cessation discussed for >3mins.? @ -No Was critical care preformed (if so, how long)? @ -No Were there social determinants of health that impacted care today? How? (Homelessness, low income, unemployed, alcoholism, drug addiction, transportation, low edu. Level, literacy, decrease access to med. care, correction, rehab)? @ -No Was there de-escalation of care discussed even if they declined (Discuss DNR or withdrawal of care, Hospice)? DNR status @ -No What co-morbidities impacted this encounter? (DM, HTN, Smoking, COPD, CAD, Cancer, CVA, ARF, Chemo, Hep., AIDS, mental health diagnosis, sleep apnea, morbid obesity)? @ -None Was patient admitted / discharged? Hospital course, mention meds given and route, prescriptions, significant lab abnormalities, going to OR and other pertinent info. @ -Based on the patient's presentation and physical exam, I'm concerned for upper respiratory infection for the patient. We will obtain viral swabs. I did offer a chest x-ray which the patient declines at this time. Vital signs are within except for limits. She was in agreement this plan. No respiratory distress. No increased work of breathing. No hypoxia. Viral swabs positive for Covid. Negative for influenza, RSV. I did update the patient. She exposed understanding. Explained that she needs to try to isolate for 5 days after initial onset of symptoms. She also needs to be 24 hours before she goes back to work. She exposed understanding. Discussed obtaining a pulse ox. Discussed using [id number] analgesia for fevers as well as joint pain. Discussed hydration. She was in agreement this plan. She will receive a dose of Decadron prior to discharge. I instructed the patient to follow up with their PCP in the next 1-3 days. I explained that the patient should return to the emergency department if they experience any worsening symptoms. Strict return precautions were discussed with the patient. The patient expressed understanding of these instructions. I answered all questions that the patient had. The patient was discharged home in good condition with their prescriptions and follow up information. Undiagnosed new problem with uncertain prognosis? @ -No Drug Therapy requiring intensive monitoring for toxicity (Heparin, Nitro, Insulin, Cardizem)? @ -No Were any procedures done? @ -No Diagnosis/symptom? @ -Covid 19 infection Acute, or Chronic, or Acute on Chronic? @ -Acute Uncomplicated (without systemic symptoms) or Complicated (systemic symptoms)? @ -Uncomplicated Side effects of treatment? @ -No Exacerbation, Progression, or Severe Exacerbation? @ -No Poses a threat to life or bodily function? How? (Chest pain, [place], [place], pneumonia, PE, COPD, DKA, ARF, appy, cholecystitis, CVA, Diverticulitis, Homicidal, Suicidal, threat to staff... and all critical care pts) @ -No - Lab Data Lab Results 02/26/23 Range/Units 13:19 Influenza Type A (PCR) Not Detected (Not Detectd) Influenza Type B (PCR) Not Detected (Not Detectd) RSV (PCR) Not Detected (Not Detectd) SARS-CoV-2 (PCR) Detected A (Not Detectd) Disposition Clinical Impression: COVID-19 virus infection Disposition: HOME SELF-CARE Condition: Good Instructions (If sedation given, give patient instructions): Upper Respiratory Infection (ED), COVID-19 (Coronavirus Disease 2019) (ED) Additional Instructions: Quarentine until Tuesday03/01/23. Obtain a pulse ox to monitor oxygenation. Return if persistently less than 92%. Monitor fevers. Stay hydrated with fluids/gatoraide. Return if any concerns or worsening symptoms. Is patient prescribed a controlled substance at d/c from ED?: No Referrals: Mc Carter MD [Primary Care Provider] - 1-2 days Time of Disposition: 15:00
[2023-02-26] MEDS ORDERED: dexAMETHasone 4 MG TAB PO STA (15:00)
[2023-02-26 15:24] VITALS: BP 108/74; PULSE 74; TEMP 98
== END 2023-02-26 15:24 | disposition home or self-care (01) ==
LOC: EC 13:04
DX: U07.1 COVID-19 (principal); K21.9 Gastro-esophageal reflux disease without esophagitis; F32.A Depression, unspecified; F41.9 Anxiety disorder, unspecified; F12.90 Cannabis use, unspecified, uncomplicated; Z79.899 Other long term (current) drug therapy; Z88.8 Allergy status to other drugs, medicaments and biological substances; Z91.018 Allergy to other foods
CPT/HCPCS: 87636; 99283; J8540

== ENCOUNTER → 2023-03-17 | Outpatient (CLI) | payer OTHER ==
--- NOTE | 2023-03-17 14:27 | US ---
EXAMINATION TYPE: US kidneys/renal and bladder DATE OF EXAM: 03/17/2023 COMPARISON: CT December 28 2021 CLINICAL INDICATION: Female, 58 years old with history of C64.1 MALIG [place] OF RIGHT KIDNEY; History re nal CA, right kidney surgery to remove mass and portion of right kidney EXAM MEASUREMENTS: Right Kidney: 8.9 x 4.4 x 4.9 cm Left Kidney: 10.9 x 5.6 x 4.9 cm Right Kidney: measures small in size Left Kidney: No hydronephrosis or masses seen Bladder: wnl Bilateral Jets seen: yes Focal cortical volume loss upper pole right kidney redemonstrated. There is no evidence for hydroneph rosis at this point in time. No nephrolithiasis is seen. No masses are identified. The urinary dong dder is adequately distended. Bilateral ureteral jets are seen. IMPRESSION: No suspicious new masses identified bilaterally on images saved. No significant change fr om prior CT.
--- NOTE | 2023-03-17 15:54 | XR ---
EXAMINATION TYPE: XR chest 2V DATE OF EXAM: 03/17/2023 COMPARISON: 03/01/2022 TECHNIQUE: PA and lateral views submitted. HISTORY: Follow-up history of kidney cancer FINDINGS: The lungs are clear and there is no pneumothorax, pleural effusion, or focal pneumonia. Heart size normal and no overt failure. Osseous structures demonstrate hypertrophic and degenerative changes of the spine. Postsurgical change overlying the cervical spine. Hyperinflation suggests COPD. IMPRESSION: 1. No acute process. Correlate for COPD.
== END | disposition home or self-care (01) ==
LOC: RADUSWWP 13:25
PROVIDERS: ATTEND Urology
DX: C64.1 Malignant neoplasm of right kidney, except renal pelvis (principal)
CPT/HCPCS: 71046; 76770

== ENCOUNTER → 2023-04-13 | Outpatient (CLI) | payer OTHER ==
--- NOTE | 2023-04-14 06:24 | MR ---
EXAMINATION TYPE: MR knee RT wo con DATE OF EXAM: 04/13/2023 COMPARISON: Outside right knee x-ray March 10, 2023 HISTORY: Right knee pain locking and swelling since February TECHNIQUE: Multiplanar, multisequence images of the knee is performed without IV contrast. FINDINGS: MEDIAL MENISCUS: Triangular-shaped increased signal posterior horn does not definitively extend to ar ticular surface. LATERAL MENISCUS: Anterior and posterior horns are intact without tear. CRUCIATE LIGAMENTS: The anterior and posterior cruciate ligaments are intact and unremarkable. COLLATERAL LIGAMENTS: The medial collateral ligament and lateral collateral ligament complex are inta ct. Fluid signal surrounds the medial collateral ligament. EXTENSOR MECHANISM: Visualized quadriceps and patellar tendons are intact. EFFUSION: No significant suprapatellar joint effusion. POPLITEAL CYST: No popliteal/palacio cyst. TRICOMPARTMENT SPACES: Mild to moderate narrowing patellofemoral compartment. Mild/moderate narrowing and mild spurring medial tibial femoral compartment. CARTILAGE: Some cartilaginous loss medial tibiofemoral compartment. BONE MARROW SIGNAL: Heterogeneous increased T2 signal through the medial tibial plateau with small fo cus of diminished T1 signal distal medial femoral condyle. There is heterogeneous increased T2 signal posterior distal medial femoral condyle with focal fluid, there is partial tearing of the semimembra nous tendon origin. OTHER: No additional significant abnormality is appreciated. IMPRESSION: 1. Cqiy-pf-tqiarkta MCL sprain injury. 2. Partial tearing at the origin of the semimembranosus tendon. 3. Intrasubstance tear posterior horn medial meniscus, no definitive full-thickness meniscal tear. 4. Jiei-jw-lcbufewl tricompartment degenerative changes as detailed above. 5. Abnormal bone marrow edema/osseous contusion medial tibial plateau.
== END | disposition home or self-care (01) ==
LOC: RADMRIMAIN 18:39
PROVIDERS: ATTEND Orthopaedic Surgery
DX: M17.11 Unilateral primary osteoarthritis, right knee (principal); S83.411A Sprain of medial collateral ligament of right knee, initial encounter; S83.241A Other tear of medial meniscus, current injury, right knee, initial encounter; S80.01XA Contusion of right knee, initial encounter; X58.XXXA Exposure to other specified factors, initial encounter

== ENCOUNTER 2023-07-19 06:00 | Day surgery (SDC) | payer OTHER ==
[2023-07-12 09:56] VITALS: BMI 27.6
--- NOTE | 2023-07-18 08:28 | P.HPOR ---
History of Present Illness H&P Date: 07/18/23 Chief Complaint: Right knee pain The patient is a 58-year-old female who presents with progressive right knee pain after injury in February of this year. She notes buckling and locking. She has tried bracing in addition to medications and injection with only partial temporary relief. She notes daily pain that limits her normal function and activities. Review of Systems As per HPI Past Medical History Past Medical History: Cancer, GERD/Reflux, Hyperlipidemia, Musculoskeletal Disorder, Pneumonia Additional Past Medical History / Comment(s): Carpel tunnel marina wrist, Diverticulitis, IBS, Bulging Discs in her back, Hx of nicked liver during gallbladder surgery with peritonitis, kidney CA 2020 History of Any Multi-Drug Resistant Organisms: None Reported Past Surgical History: Back Surgery, Bowel Resection, Section, Cholecystectomy, Hysterectomy Additional Past Surgical History / Comment(s): 2 herniated cervical discs with cadaver and metal plate, laparoscopies, colonsocopy, oophorectomy, partial bowel resection (states bowel collapsed and adherred to bladder (2015), right partial nephrectomy Past Anesthesia/Blood Transfusion Reactions: No Reported Reaction Additional Past Anesthesia/Blood Transfusion Reaction / Comment(s): no hx blood transfusion Past Psychological History: Anxiety, Depression Smoking Status: Never smoker Past Alcohol Use History: None Reported Past Drug Use History: Marijuana Additional Drug Use History / Comment(s): marijuana daily -INSTRUCTED TO REFRAIN FROM USE FOR AT LEAST 24 HOURS PRIOR TO PROCEDURE - Past Family History Mother Family Medical History: No Reported History Father Additional Family Medical History / Comment(s): pt. states her father has been for 20 years, had a necrotic gallbladder ended up turning into pancreatitis and he secondary to that Medications and Allergies Home Medications Medication Instructions Recorded Confirmed Type Omeprazole 40 mg PO BID 06/04/19 07/12/23 History Gabapentin 600 mg PO BID 05/13/21 07/12/23 History HYDROcodone/APAP 7.5-325MG [Blaine 1 tab PO TID PRN 05/13/21 07/12/23 History 7.5-325] rOPINIRole HCL [Requip] 1 mg PO HS 07/01/21 07/12/23 History ALPRAZolam [Xanax] 0.5 mg PO BID PRN 11/20/21 07/12/23 History Cyclobenzaprine [Flexeril] 5 mg PO DAILY PRN 11/20/21 07/12/23 History EPINEPHrine (Auto Inject) [Epipen] 0.3 mg IM ONCE PRN 11/20/21 07/12/23 History FLUoxetine HCL [Sarafem] 60 mg PO 0430 11/20/21 07/12/23 History Ondansetron Odt [Zofran ODT] 4 mg PO Q8H PRN 11/20/21 07/12/23 History busPIRone HCL [Buspar] 30 mg PO Q12H 11/20/21 07/12/23 History Atorvastatin Calcium 5 mg PO HS 07/12/23 07/12/23 History Allergies Allergy/AdvReac Type Severity Reaction Status Date / Time methylprednisolone Allergy Unknown Swelling Verified 07/12/23 09:45 tree nut [Nut] Allergy Unknown Anaphylaxis Verified 07/12/23 09:45 Physical Examination - Knee right Appearance: effusion Effusion grade: grade 2 Tenderness with palpation: medial, lateral Pain: throughout ROM Gait: limping ROM: flexion: 90 degrees Meniscal tests: medial meniscal tests: positive, lateral meniscal tests: positive, medial joint line pain: positive, lateral joint line pain: positive Results The patient is a well-developed well-nourished female approximately 5 foot 9, 200 pounds of endomorphic habitus. HEENT exam is nonfocal, neck is supple. She has painless passive motion of the right hip. Straight leg raise is negative. She is tender about the medial and lateral joint line of the right knee. Collaterals are stable, Nannette was negative, Solange's elicits medial and lateral pain. Her distal neurovascular appears intact in the right lower extremity. - Diagnostic results Knee MRI: image reviewed (MRI of the right knee shows evidence of a posterior medial meniscal tear.) Assessment and Plan Assessment: Right knee internal derangement/symptomatic medial meniscal tear Plan: I talked to the patient length regarding her condition and treatment options. At this point she is quite symptomatic having pain and mechanical symptoms after this acute injury despite attempted conservative measures. A discussion of the risks and benefits of operative intervention versus continued conservative measures was made with patient. She opted to proceed with surgery. We will plan to proceed with right knee arthroscopy with possible partial medial meniscectomy. Risks and benefits were discussed at length in layman's terms. We will likely perform as an outpatient procedure.
[2023-07-19] MEDS ORDERED: LACTATED RINGERS 1,000 ML IV SCH (06:18)
[2023-07-19] MEDS ORDERED: LIDOCAINE 1% (10MG/ML) FOR IV START INTRADERMA PRN (06:18)
[2023-07-19] MEDS ORDERED: ONDANSETRON 4 MG/2 ML VIAL IVP ONE (06:18)
[2023-07-19] MEDS ORDERED: MIDAZOLAM 2 MG/2 ML VIAL IVP ONE (07:07)
[2023-07-19] MEDS ORDERED: EPINEPHrine (PF) 1 ML in SODIUM CHLORIDE 0.9% IRRIGATIO 3,000 ML IRRIGATION ONE ×4 (07:29)
[2023-07-19] MEDS ORDERED: MIDAZOLAM 2 MG/2 ML VIAL ONE (07:29)
[2023-07-19] MEDS ORDERED: fentaNYL (PF) 50 MCG/ML 2 ML AMP ONE (07:29)
[2023-07-19] MEDS ORDERED: KETOROLAC 15 MG/ML 1 ML VIAL ONE (07:29)
[2023-07-19] MEDS ORDERED: SUCCINYLCHOLINE CHLORIDE 200 MG/10 ML VIAL IV ONE (07:29)
[2023-07-19] MEDS ORDERED: LIDOCAINE 2% INJ 20 MG/ML (2 ML VIAL) ONE (07:29)
[2023-07-19] MEDS ORDERED: HYDROmorphone (PF) 1 MG/ML ONE (07:29)
[2023-07-19] MEDS ORDERED: PROPOFOL 10 MG/ML 20 ML VIAL IV ONE (07:29)
[2023-07-19] MEDS ORDERED: LACTATED RINGERS 1,000 ML IV ONE (08:02)
--- NOTE | 2023-07-19 08:17 | P.OP ---
Date of Procedure: 07/19/23 Preoperative Diagnosis: Right knee internal derangement Postoperative Diagnosis: Right knee posterior medial meniscal tear/grade 3 chondral injury distal medial portion medial femoral condyle Procedure(s) Performed: Right knee arthroscopic partial medial meniscectomy/medial femoral chondrectomy Anesthesia: DAVE Surgeon: Adalid Amezquita Estimated Blood Loss (ml): 10 Pathology: none sent Condition: stable Disposition: PACU Indications for Procedure: The patient is a 58-year-old female who presents with progressive right knee pain and mechanical symptoms after a recent injury despite attempted conservative measures. A discussion of the risks and benefits of operative intervention versus continued conservative measures was made with patient, she opted to proceed with surgery. Operative risks to include infection, neurovascular injury, development blood clots, possible incomplete resolution of symptoms, possible worsening symptoms and need for subsequent procedures was discussed. Informed consent was obtained. Operative Findings: As below Description of Procedure: The patient was brought to the operating room, and after induction of general anesthesia examined the right knee. Collaterals were stable, Nannette was negative, and posterior drawer was negative. The right lower extremity was prepped and draped in a normal fashion. A superior lateral portal was made through a 3 mm skin incision superior and lateral to the patella. This was used for outflow. A lateral portal was made through a 5 mm vertical skin incision lateral to the patella tendon above the joint line. Diagnostic arthroscopy was performed. On inspection of the medial compartment, and oblique tear involving the posterior most aspect the medial meniscus in the white-red junction was noted. This was debrided back to a stable base with straight baskets and a motorized shaver. The remaining medial meniscus was stable and intact. A grade 3 chondral injury was noted involving the distal medial portion of the medial femoral condyle with a loose chondral flap. It measured approximately 5 x 5 mm. This was debrided back to a stable base with a motorized shaver. On inspection of the notch, the anterior cruciate ligament appeared to be intact. On inspection of the lateral compartment, no significant meniscal or cartilage pathology was noted. On inspection of the patellofemoral articulation, there was chondral fibrillation however no loose chondral fragments. The gutters were clear of debris. The knee was then thoroughly irrigated. The portals were closed with Steri-Strips. A sterile dressing was applied in addition to a compression stocking. The patient was awoken from general anesthesia and transferred to recovery room in good condition. Blood loss was estimated at 10 mL. No complications were incurred.
[2023-07-19 08:18] VITALS: TEMP 97
[2023-07-19 08:48] VITALS: RESP 16
[2023-07-19] MEDS: HYDROmorphone 0.5 MG/0.5 ML SYRINGE IVP PRN ×2 (08:54→09:03)
[2023-07-19] MEDS ORDERED: HYDROcodone/APAP 7.5-325MG 1 EACH TAB ONE (10:05)
[2023-07-19 10:09] VITALS: BP 117/65; PULSE 81
== END 2023-07-19 10:50 | disposition home or self-care (01) ==
LOC: OR 06:00
PROVIDERS: ATTEND Orthopaedic Surgery
DX: S83.241A Other tear of medial meniscus, current injury, right knee, initial encounter (principal); E78.5 Hyperlipidemia, unspecified; K21.9 Gastro-esophageal reflux disease without esophagitis; F41.9 Anxiety disorder, unspecified; F32.A Depression, unspecified; K58.9 Irritable bowel syndrome, unspecified; Z85.528 Personal history of other malignant neoplasm of kidney; Z90.710 Acquired absence of both cervix and uterus; Z98.891 History of uterine scar from previous surgery; Z90.49 Acquired absence of other specified parts of digestive tract; Z90.721 Acquired absence of ovaries, unilateral; F12.90 Cannabis use, unspecified, uncomplicated; Z83.79 Family history of other diseases of the digestive system; Z79.899 Other long term (current) drug therapy; X58.XXXA Exposure to other specified factors, initial encounter
CPT/HCPCS: 29881; J2250; J0330; J0690; J2405; J0171; J3010; J1170 ×2; J1885; J2704; J2001

== ENCOUNTER → 2023-09-29 | Outpatient (CLI) | payer OTHER ==
--- NOTE | 2023-10-02 05:33 | MR ---
EXAMINATION TYPE: MR knee LT wo con DATE OF EXAM: 09/29/2023 COMPARISON: Outside left knee x-ray August 22, 2023 HISTORY: Left knee pain, swelling, and locks x4 months TECHNIQUE: Multiplanar, multisequence images of the knee is performed without IV contrast. FINDINGS: MEDIAL MENISCUS: Medial bulging medial meniscus with increased horizontal signal coronal image 23 inv olving posterior horn. Abnormal signal does not definitively extend to articular surface. LATERAL MENISCUS: Anterior and posterior horns are intact without tear. CRUCIATE LIGAMENTS: The anterior and posterior cruciate ligaments are intact and unremarkable. COLLATERAL LIGAMENTS: The medial collateral ligament and lateral collateral ligament complex are inta ct and unremarkable. EXTENSOR MECHANISM: Visualized quadriceps and patellar tendons are intact. EFFUSION: No significant suprapatellar joint effusion. POPLITEAL CYST: Moderate to large-sized leaking septated popliteal/palacio cyst measuring 7.4 cm long a xis sagittal image 26 with adjacent fluid noted. TRICOMPARTMENT SPACES: [id number]-cc-grmymfik tricompartment joint space loss without significant spurring CARTILAGE: Some cartilaginous loss medial tibiofemoral compartment with a focus of diminished T1 sign al medial tibial plateau measuring 8 mm transversely coronal image 19 x 9 mm AP diameter sagittal arcadio ge 25. Mild increased T2 signal or surrounding edema is noted. BONE MARROW SIGNAL: No focal abnormal marrow signal is appreciated. OTHER: No additional significant abnormality is appreciated. IMPRESSION: 1. [id number] tricompartment degenerative changes as detailed above. 2. At least an intrasubstance tear posterior horn of medial meniscus, no full-thickness meniscal tear is seen. 3. Moderate to large size multiseptated and leaking popliteal cyst. 4. There is 8 mm Focus of osteochondral injury medial tibial plateau with surrounding edema.
== END | disposition home or self-care (01) ==
LOC: RADMRIMAIN 06:20
PROVIDERS: ATTEND Orthopaedic Surgery
DX: M17.12 Unilateral primary osteoarthritis, left knee (principal); M23.322 Other meniscus derangements, posterior horn of medial meniscus, left knee; M71.22 Synovial cyst of popliteal space [Baker], left knee; R60.0 Localized edema

== ENCOUNTER 2024-02-12 12:09 | Emergency (ER) | payer OTHER ==
[2024-02-12 12:27] VITALS: RESP 18
--- NOTE | 2024-02-12 12:30 | ED ---
Back Pain HPI - General Chief Complaint: Back Pain/Injury Stated Complaint: Lower Back Pain going down Legs Time Seen by Provider: 02/12/24 12:14 Source: patient, RN notes reviewed Mode of arrival: ambulatory Limitations: no limitations - History of Present Illness Initial Comments: 59-year-old female presents emergency department chief complaint of low back pain. She states she has been having pain for last 2 weeks she does have some pain that radiates down to her right leg to the knee level. Patient states that she had no traumatic injuries. She states she has chronic back issues in which she has had surgery on her neck, complains of chronic upper and lower back pain she states is usually goes away but states spent 2 weeks. Patient denies any bowel, bladder incontinence or retention no saddle anesthesias no lower extremity paresthesias no focal weakness. Patient states that she took some Tylenol this morning with no relief of symptoms. She denies any new complaints of abdominal pain. She has no dysuria no fevers. - Related Data Home Medications Medication Instructions Recorded Confirmed Omeprazole 40 mg PO BID 06/04/19 07/12/23 Gabapentin 600 mg PO BID 05/13/21 07/12/23 HYDROcodone/APAP 7.5-325MG [Vancourt 1 tab PO TID PRN 05/13/21 07/12/23 7.5-325] rOPINIRole HCL [Requip] 1 mg PO HS 07/01/21 07/12/23 ALPRAZolam [Xanax] 0.5 mg PO BID PRN 11/20/21 07/12/23 Cyclobenzaprine [Flexeril] 5 mg PO DAILY PRN 11/20/21 07/12/23 EPINEPHrine (Auto Inject) [Epipen] 0.3 mg IM ONCE PRN 11/20/21 07/12/23 FLUoxetine HCL [Sarafem] 60 mg PO 0430 11/20/21 07/12/23 Ondansetron Odt [Zofran ODT] 4 mg PO Q8H PRN 11/20/21 07/12/23 busPIRone HCL [Buspar] 30 mg PO Q12H 11/20/21 07/12/23 Atorvastatin Calcium 5 mg PO HS 07/12/23 07/12/23 Previous Rx's Medication Instructions Recorded Cyclobenzaprine [Flexeril] 10 mg PO TID PRN #15 tab 02/12/24 Ibuprofen [Motrin] 600 mg PO Q8HR PRN #20 tab 02/12/24 Lidocaine 5% Patch [Lidoderm] 1 patch TOPICAL DAILY #7 patch 02/12/24 Allergies Allergy/AdvReac Type Severity Reaction Status Date / Time methylprednisolone Allergy Unknown Swelling Verified 02/12/24 12:13 tree nut [Nut] Allergy Unknown Anaphylaxis Verified 02/12/24 12:13 Review of Systems ROS Statement: Those systems with pertinent positive or pertinent negative responses have been documented in the HPI. ROS Other: All systems not noted in ROS Statement are negative. Past Medical History Past Medical History: Cancer, GERD/Reflux, Hyperlipidemia, Musculoskeletal Disorder, Pneumonia Additional Past Medical History / Comment(s): Carpel tunnel [place] wrist, Diverticulitis, IBS, Bulging Discs in her back, Hx of nicked liver during gallbladder surgery with peritonitis, kidney CA 2020 History of Any Multi-Drug Resistant Organisms: None Reported Past Surgical History: Back Surgery, Bowel Resection, Section, Cholec ystectomy, Hysterectomy Additional Past Surgical History / Comment(s): 2 herniated cervical discs with cadaver and metal plate, laparoscopies, colonsocopy, oophorectomy, partial bowel resection (states bowel collapsed and adherred to bladder (2016), right partial nephrectomy Past Anesthesia/Blood Transfusion Reactions: No Reported Reaction Additional Past Anesthesia/Blood Transfusion Reaction / Comment(s): no hx blood transfusion Past Psychological History: Anxiety, Depression Smoking Status: Never smoker Past Alcohol Use History: None Reported Past Drug Use History: Marijuana - Past Family History Mother Family Medical History: No Reported History Father Additional Family Medical History / Comment(s): pt. states her father has been for 20 years, had a necrotic gallbladder ended up turning into pancreatitis and he secondary to that General Exam Limitations: no limitations General appearance: alert, in no apparent distress Head exam: Present: atraumatic, normocephalic, normal inspection Neck exam: Present: normal inspection. Absent: tenderness, meningismus, lymphadenopathy Respiratory exam: Present: normal lung sounds bilaterally. Absent: respiratory distress, wheezes, rales, rhonchi, stridor Cardiovascular Exam: Present: regular rate, normal rhythm, normal heart sounds. Absent: systolic murmur, diastolic murmur, rubs, gallop, clicks GI/Abdominal exam: Present: soft, normal bowel sounds. Absent: distended, tenderness, guarding, rebound, rigid Extremities exam: Present: other (Lower extremity strength equal bilaterally, neurovascular intact equal color and equal warmth) Back exam: Present: full ROM (With moderate discomfort), tenderness, paraspinal tenderness, vertebral tenderness Neurological exam: Present: alert, oriented X3, reflexes normal. Absent: motor sensory deficit Course Vital Signs 02/12/24 02/12/24 12:11 13:15 Temperature 98.2 F 98.4 F Pulse Rate 79 82 Respiratory 18 18 Rate Blood Pressure 135/70 128/68 O2 Sat by Pulse 99 99 Oximetry Medical Decision Making - Medical Decision Making Was pt. sent in by a medical professional or institution (, PA, [employer]PL[employer]TER, urgent care, hospital, or half-way...) When possible be specific @ -No Did you speak to anyone other than the patient for history (EMS, parent, family, police, friend...)? What history was obtained from this source @ -No Did you review nursing and triage notes (agree or disagree)? Why? @ -I reviewed and agree with nursing and triage notes Were old charts reviewed (outside hosp., previous admission, EMS record, old EKG , old radiological studies, urgent care reports/EKG's, half-way records)? Report findings @ -No old charts were reviewed Differential Diagnosis (chest pain, altered mental status, abdominal pain women, abdominal pain men, vaginal bleeding, weakness, fever, dyspnea, syncope, headache, dizziness, GI bleed, back pain, seizure, CVA, palpatations, mental health, musculoskeletal)? @ -Differential Back Pain: Strain, zoster, cauda equina syndrome, epidural abscess, vertebral osteomyelitis, discitis, fracture, subluxation, disc herniation, DJD, spinal stenosis, dissection, AAA, pancreatitis, peptic ulcer disease, pyelonephritis, kidney stone, this is not meant to be an all-inclusive list. EKG interpreted by me (3pts min.). @ -None none X-rays interpreted by me (1pt min.). @ -X-ray lumbar spine showing degenerative changes L1-L2 L4-L5 L5-S1 CT interpreted by me (1pt min.). @ -None done U/S interpreted by me (1pt. min.). @ -None done What testing was considered but not performed or refused? (CT, X-rays, U/S, labs)? Why? @ -None What meds were considered but not given or refused? Why? @ -None Did you discuss the management of the patient with other professionals (professionals i.e. , PA, [employer]PLANTER, lab, RT, psych nurse, clinical social work therapist, valet parker, teacher, sea air land officer, case investigator)? Give summary @ -No Was smoking cessation discussed for >3mins.? @ -No Was critical care preformed (if so, how long)? @ -No Were there social determinants of health that impacted care today? How? (Homelessness, low income, unemployed, alcoholism, drug addiction, transportation, low edu. Level, literacy, decrease access to med. care, assisted, rehab)? @ -No Was there de-escalation of care discussed even if they declined (Discuss DNR or withdrawal of care, Hospice)? DNR status @ -No What co-morbidities impacted this encounter? (DM, HTN, Smoking, COPD, CAD, Cancer, CVA, ARF, Chemo, Hep., AIDS, mental health diagnosis, sleep apnea, morbid obesity)? @ -None Was patient admitted / discharged? Hospital course, mention meds given and route, prescriptions, significant lab abnormalities, going to OR and other pertinent info. @ -Discharged patient was provided analgesics in the emergency department felt improved she has degenerative changes with no red flag symptoms at this time. She will be discharged in stable condition she states she has an allergy to steroids in which she will not be prescribed steroids. She will follow-up with orthopedic surgeon and return brands were discussed. Undiagnosed new problem with uncertain prognosis? @ -No Drug Therapy requiring intensive monitoring for toxicity (Heparin, Nitro, Insulin, Cardizem)? @ -No Were any procedures done? @ -No Diagnosis/symptom? @ -Lumbar back pain Acute, or Chronic, or Acute on Chronic? @ -Acute Uncomplicated (without systemic symptoms) or Complicated (systemic symptoms)? @ -Uncomplicated Side effects of treatment? @ -No Exacerbation, Progression, or Severe Exacerbation? @ -No Poses a threat to life or bodily function? How? (Chest pain, [place], PA, pneumonia, PE, COPD, DKA, ARF, appy, cholecystitis, CVA, Diverticulitis, Homicidal, Suicidal, threat to staff... and all critical care pts) @ -No Disposition Clinical Impression: Lumbar radiculopathy, Strain of lumbar region, Degeneration of intervertebral disc Disposition: HOME SELF-CARE Condition: Stable Instructions (If sedation given, give patient instructions): Acute Low Back Pain (ED) Additional Instructions: Please return to the Emergency Department if symptoms worsen or any other concerns. Prescriptions: Cyclobenzaprine [Flexeril] 10 mg PO TID PRN #15 tab PRN Reason: Muscle Spasm Lidocaine 5% Patch [Lidoderm] 1 patch TOPICAL DAILY #7 patch Ibuprofen [Motrin] 600 mg PO Q8HR PRN #20 tab PRN Reason: Pain Is patient prescribed a controlled substance at d/c from ED?: No Referrals: Mc Carter [Primary Care Provider] - 1-2 days Rosario Mullins DO [Doctor of Osteopathic Medicine] - 1-2 days Time of Disposition: 13:05
[2024-02-12] MEDS: ORPHENADRINE 30 MG/ML 2 ML VIAL IM STA (12:32)
[2024-02-12] MEDS: LIDOCAINE 4% PATCH TOPICAL ONE (12:33)
[2024-02-12] MEDS: KETOROLAC 15 MG/ML 1 ML VIAL IM STA (12:33)
--- NOTE | 2024-02-12 12:35 | XR ---
EXAMINATION TYPE: XR lumbar spine 2 or 3V DATE OF EXAM: 02/12/2024 COMPARISON: None HISTORY: Pain TECHNIQUE: 3 view lumbar spine FINDINGS: There are 5 lumbar-type vertebral bodies. Pedicles are intact. Subtle scoliosis with convex ity to the right is centered at L2. There is multilevel degenerative disc changes with narrowing of d isc height. This appears greatest at L1-2 and L4-5 and L5-S1. Some vacuum disc phenomenon may be pres ent at these levels. Narrowing is noted at the L2-3 and L3-4 levels. Vertebral body alignment is pres erved. Vertebral body heights are preserved. Follow-up MRI can be performed as clinically indicated. IMPRESSION: 1. Degenerative disc changes with narrowing of disc height and some vacuum disc phenomenon discussed above
[2024-02-12] MEDS: IBUPROFEN 600 MG STARTER PACK 4 TAB BTL PO STA (13:08)
[2024-02-12] MEDS: CEPHALEXIN 500MG STARTER PACK 4 CAP BTL PO STA (13:08)
[2024-02-12] MEDS: ACET/COD 300 MG/30 MG STARTER PACK 6 TAB BTL PO STA (13:09)
[2024-02-12] MEDS: CYCLOBENZAPRINE 10MG STARTER 3 TAB BTL PO STA (13:13)
[2024-02-12 13:41] VITALS: BP 128/68; PULSE 82; TEMP 98.4
== END 2024-02-12 13:17 | disposition home or self-care (01) ==
LOC: EC 12:09
DX: M51.36 Other intervertebral disc degeneration, lumbar region (principal); M47.816 Spondylosis without myelopathy or radiculopathy, lumbar region; M48.061 Spinal stenosis, lumbar region without neurogenic claudication; Z91.018 Allergy to other foods; Z88.8 Allergy status to other drugs, medicaments and biological substances
CPT/HCPCS: 72100; 99283; 96372 ×2; J2360; J1885